=== PATIENT | male | born 1950 | race Caucasian/White ===

== ENCOUNTER 2017-06-02 16:09 | Emergency (ER) | payer OTHER, MEDICARE ==
[~2017-06-02] VITALS: Ht 177.8 cm; Wt 106.6 kg
[~2017-06-02 16:09] MED LIST: CARVEDILOL12.5 MG PO; CIPRO500 MG PO; FUROSEMIDE40 MG PO; LISINOPRIL10 MG PO; LISINOPRIL2.5 MG PO; MACROBID 100 M100 MG PO; METFORMIN HCL1000 MG PO; NORCO 5-325 TA1 EACH PO; PYRIDIUM200 MG PO; SPIRONOLACTONE25 MG PO; VITAMIN D5000 UNI1 PO
[2017-06-02] MEDS ORDERED: ENTRESTO 24 MG1 EACH (16:26)
[2017-06-02] MEDS ORDERED: ONDANSETRON ODT8 MG PO (18:34)
--- NOTE | 2017-06-03 15:29 | EKG ---
[facility] [address] [facility] [place], [place] [address] Signed Wide QRS rhythm Left axis deviation Nonspecific intraventricular block Lateral infarct , age undetermined Inferior infarct , age undetermined Abnormal ECG No previous ECGs available Confirmed by AVERY SORIANO MD ([id number]) on 06/03/2017 3:29:21 PM Electronically Signed By: AVERY SORIANO MD 06/03/17 1529 PATIENT NAME: CARIN GAITAN Electrocardiogram DATE OF : 50 PHYSICIAN: AVERY SORIANO MD REPORT #: [id number] REPORT IS CONFIDENTIAL AND NOT TO BE RELEASED WITHOUT AUTHORIZATION
== END 2017-06-02 18:46 | disposition home or self-care (01) ==
LOC: ED 16:09
DX: J10.1 Influenza due to other identified influenza virus with other respiratory manifestations (principal); E86.0 Dehydration; I11.0 Hypertensive heart disease with heart failure; I50.9 Heart failure, unspecified; E11.9 Type 2 diabetes mellitus without complications; Z90.49 Acquired absence of other specified parts of digestive tract; Z88.2 Allergy status to sulfonamides; Z79.899 Other long term (current) drug therapy; Z79.84 Long term (current) use of oral hypoglycemic drugs
CPT/HCPCS: 71045; 80053; 83880; 84484; 85025; 87502; 93005; 93010; 96361; 96374; 96375; 99284; J2405; J7030

== ENCOUNTER 2022-12-26 17:33 | Inpatient (IN) | payer OTHER, MEDICARE ==
[~2022-12-26] VITALS: Ht 177.8 cm; Wt 102.8 kg
--- OUTSIDE RECORDS SUMMARY | ~2022-12-26 | XMS | Continuity of Care Document ---
Demographics + + + | Address | [address] | | | [place] [address] | + + + | Preferred Language | Unknown | + + + | Marital Status | | + + + | Adventism Affiliation | Unknown | + + + | Race | White | + + + | Ethnic Group | Unknown | + + + Author + + + | Author | [facility] | + + + | Organization | [facility] | + + + | Address | [address] | | | [place] [address] | + + + | Phone | | + + + Care Team Providers + + + + | Care Vice President Digital Strategist Name | Role | Phone | + + + + Unavailable | Unavailable | + + + + Allergies and Intolerances + + + + + + | date | description | facility | reaction | severity | + + + + + + | (no date) | Sulfa | [facility] | (no reaction) | (no severity) | | | (Sulfonamide | | | | | | Antibiotics) | | | | + + + + + + Encounters No information. Functional Status No information. Immunizations No information. Medications No information. Problems No information. Procedures No information. Results/Labs No information. Social History No information. Vital Signs No information."
[~2022-12-26 17:33] MED LIST changes: +ENTRESTO 24 MG1 EACH; +ONDANSETRON ODT8 MG PO
[2022-12-26] MEDS ORDERED: FINASTERIDE5 MG PO (17:49)
[2022-12-26] MEDS ORDERED: JARDIANCE25 MG PO (17:49)
[2022-12-26] MEDS ORDERED: ATORVASTATIN CA20 MG PO (17:50)
[2022-12-26] MEDS ORDERED: CARVEDILOL12.5 MG PO (17:51)
[2022-12-26 17:57] LABS: BASOPHILS 0.4 % (0-2); EOSINOPHILS 0.4 % (0-6); HEMATOCRIT 40.7 % (35.0-50.0); HEMOGLOBIN 13.5 g/dL (12.0-18.0); LYMPHOCYTES 7.5 % (24-44); MCH 30.8 (27-36); MCHC 33.2 g/dl (30-36); MONOCYTES 5.4 % (0-12); NEUTROPHILS 86.3 % (39-80); PLATELET COUNT 176 K/uL (140-440); RBC 4.38 M/ul (4.3-5.7); RDW 13.3 (10.5-15.0)
[2022-12-26 18:14] LABS: ALBUMIN 3.6 g/dL (3.4-5.0); ALBUMIN/GLOBULIN RATIO 1.16 (1.1-2.4); ANION GAP 19.1 (7-21); BILIRUBIN, TOTAL 0.8 ng/dL (0.2-1.0); BUN/CREATININE RATIO 40.47 (6.0-28.6); CALCIUM 9.1 mg/dL (8.5-10.1); CREATININE, SERUM 1.26 mg/dL (0.70-1.30); MAGNESIUM 2.1 mg/dL (1.8-2.4); POTASSIUM 5.1 mmol/L (3.5-5.1); PROTEIN, TOTAL 6.7 g/dL (6.4-8.2)
--- NOTE | 2022-12-26 20:52 | NUR ---
pt ARRIVED TO [facility] FLOOR, BROUGHT IN BY ARMORING MACHINE OPERATORBHARGAVI RAMÍREZ. DISCUSSED WITH BOTH pt AND FAMILY POC, QUESTIONS ANSWERED, CALL LIGHT IN REACH. TELE IN PLACE, VSS. PRIMARY BHARGAVI ISBELL REMAINS IN ROOM. DR MAIN ALSO IN ROOM TO REASSESS REPEATED EKG. VERBAL ORDER READ BACK TO HOLD OFF ON IV MAINTENANCE FLUIDS AT THIS TIME D/T CARDIAC HX, NOTIFY MD IF BP DROPS. PRIMARY BHARGAVI ISBELL ALSO IN ROOM DURING CONVERSATION AND AWARE.
[2022-12-26 21:02] VITALS: BP 102/67
--- NOTE | 2022-12-26 21:34 | NUR ---
CONTACTED NURSE TAKING CARE OF PATIENT REGARDING TELEMETRY READING. SHOWS TOMB STONE LIKE PRESENTATION THAT REPRESENTS ST ELEVATION. LOOKS LIKE TOMB STONES ARE GETTING HIGHER. ALSO, THERE IS A VERY WIDE QRS COMPLEX. P WAVES ARE INVERTED. OCCASIONAL PVCS. ALL OF THE ABOVE REPORTED TO THE NURSE AND ADVISED TO CALL THE MD.
--- NOTE | 2022-12-26 21:37 | NUR ---
ALSO, QTC IS LONG GREATER THAN 500. REPORTED THIS TO PRIMARY NURSE WELL.
--- NOTE | 2022-12-26 21:45 | NUR ---
Pt placed on tele, noticed wide QRS and prolong QTC interval. Notified , got order for stat EKG. Dr. Molina was at bedside. director of video analytics and 21 DEALER aware. Will continue to monitor.
--- NOTE | 2022-12-26 22:49 | NUR ---
Dr. Trejo at bedside.Got orders to start LR at 40ml, notified Dr. Baker.
--- NOTE | 2022-12-26 22:49 | NUR ---
DR DAMON AT RN STATION, INSTRUCTED THIS RN AND PRIMARY RN AKILAH THAT pt SHOULD BE ON LOW RATE CONTINUOUS IV FLUIDS, DISCUSSED WITH DR DAMON THAT DR MAIN WANTED TO HOLD OFF ON IV FLUIDS D/T pt's CARDIAC HX, DR DAMON ADAMANT ON IV FLUIDS. PRIMARY RN AKILAH TO UPDATE DR MAIN. LAB IN ROOM FOR 2300 LAB DRAWS.
[2022-12-26 23:11] LABS: BASOPHILS 0.5 % (0-2); EOSINOPHILS 0.1 % (0-6); HEMATOCRIT 39.3 % (35.0-50.0); HEMOGLOBIN 12.9 g/dL (12.0-18.0); LYMPHOCYTES 9.5 % (24-44); MCH 30.6 (27-36); MCHC 32.8 g/dl (30-36); MCV 93.3 fl (81-99); MONOCYTES 5.6 % (0-12); NEUTROPHILS 84.3 % (39-80); PLATELET COUNT 159 K/uL (140-440); RBC 4.21 M/ul (4.3-5.7); RDW 13.4 (10.5-15.0)
--- NOTE | 2022-12-26 23:20 | EKG ---
[facility] [address] [place] [address] Signed Wide QRS rhythm Left axis deviation Nonspecific intraventricular block Minimal voltage criteria for LVH, may be normal variant ( Ed product ) Possible Lateral infarct , age undetermined Cannot rule out Inferior infarct , age undetermined Abnormal ECG When compared with ECG of 02-JUN-2017 16:20, No significant change was found Confirmed by Kristin Main MD () on 12/26/2022 11:20:17 PM Electronically Signed By: KRISTIN MAIN MD 12/26/222319 PATIENT NAME: CARIN GAITAN Electrocardiogram DATE OF : 50 PHYSICIAN: KRISTIN MAIN MD REPORT #: [id number] REPORT IS CONFIDENTIAL AND NOT TO BE RELEASED WITHOUT AUTHORIZATION
--- NOTE | 2022-12-26 23:20 | EKG ---
[facility] [address] [facility] [place] [address] Signed Wide QRS rhythm Left axis deviation Nonspecific intraventricular block Lateral infarct , age undetermined Inferior infarct , age undetermined Abnormal ECG When compared with ECG of 26-DEC-2022 17:58, No significant change was found Confirmed by Kristin Main MD () on 12/26/2022 11:20:38 PM Electronically Signed By: KRISTIN MAIN MD 12/26/22 2320 PATIENT NAME: CARIN GAITAN Electrocardiogram DATE OF : 50 PHYSICIAN: KRISTIN MAIN MD REPORT #: [id number] REPORT IS CONFIDENTIAL AND NOT TO BE RELEASED WITHOUT AUTHORIZATION
[2022-12-26 23:43] LABS: ABO A; ANTIBODY SCREEN NEGATIVE; RH NEGATIVE
[2022-12-27 01:12] VITALS: BP 95/62
[2022-12-27 04:47] VITALS: BP 99/61
[2022-12-27 05:27] LABS: BASOPHILS 0.5 % (0-2); EOSINOPHILS 0.9 % (0-6); HEMATOCRIT 38.9 % (35.0-50.0); HEMOGLOBIN 12.7 g/dL (12.0-18.0); LYMPHOCYTES 14.2 % (24-44); MCH 30.4 (27-36); MCHC 32.6 g/dl (30-36); MCV 93.2 fl (81-99); MONOCYTES 10.5 % (0-12); NEUTROPHILS 73.9 % (39-80); PLATELET COUNT 159 K/uL (140-440); RBC 4.17 M/ul (4.3-5.7); RDW 13.5 (10.5-15.0)
[2022-12-27 05:41] LABS: ALBUMIN 3.5 g/dL (3.4-5.0); ALBUMIN/GLOBULIN RATIO 1.25 (1.1-2.4); ANION GAP 14.3 (7-21); BILIRUBIN, TOTAL 0.5 ng/dL (0.2-1.0); BUN/CREATININE RATIO 58.94 (6.0-28.6); CALCIUM 8.7 mg/dL (8.5-10.1); CREATININE, SERUM 0.95 mg/dL (0.70-1.30); MAGNESIUM 2.2 mg/dL (1.8-2.4); PARTIAL THROMBOPLASTIN TIME 21.9 Sec (22.9-41.3); PHOSPHORUS, INORGANIC 3.4 mg/dL (2.5-4.9); POTASSIUM 4.3 mmol/L (3.5-5.1); PROTEIN, TOTAL 6.3 g/dL (6.4-8.2)
[2022-12-27 05:51] LABS: INR 1.01 (0.80-1.30); PROTIME 12.8 Sec (11.2-14.2)
[2022-12-27 09:06] VITALS: BP 116/67
[2022-12-27] MEDS ORDERED: ENTRESTO 49 MG1 EACH PO (10:01)
[2022-12-27] MEDS ORDERED: TAMSULOSIN HCL0.4 MG PO (10:05)
--- NOTE | 2022-12-27 11:45 | NUR ---
PATIENT LEFT UNIT FOR EGD.
--- NOTE | 2022-12-27 12:20 | NUR ---
12/27/22 1220 Elizabeth Corley 1216-PATIENT TO PACU ON RA. PATIENT IS DROWSY. RESP EVEN AND UNALBORED. HEMANTH PAIN
[2022-12-27 12:39] VITALS: BP 121/69
[2022-12-27 12:51] LABS: BASOPHILS 0.3 % (0-2); EOSINOPHILS 0.6 % (0-6); HEMATOCRIT 37.1 % (35.0-50.0); HEMOGLOBIN 12.5 g/dL (12.0-18.0); LYMPHOCYTES 11.9 % (24-44); MCHC 33.6 g/dl (30-36); MCV 92.4 fl (81-99); MONOCYTES 8.2 % (0-12); PLATELET COUNT 149 K/uL (140-440); RBC 4.02 M/ul (4.3-5.7); RDW 13.1 (10.5-15.0)
[2022-12-27] MEDS ORDERED: SUCRALFATE1 GM PO (13:10)
[2022-12-27] MEDS ORDERED: PANTOPRAZOLE SO40 MG PO (13:18)
--- NOTE | 2022-12-27 13:25 | CONS ---
[facility] [address] [place], [place] [address] Signed DATE OF CONSULTATION: 12/26/2022 TIME: 10:20 p.m. PROBLEM: Presumed hematemesis and melena. 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 He presented to the emergency room where he was evaluated by Dr. Matamoros for what sounded like a hypotensive episode or at least lightheadedness and diaphoresis. The patient has an underlying history of coronary artery disease, congestive heart failure, and diabetes mellitus. He had numbness and tingling of his left arm, which has since resolved. He did have associated nausea. He had been out in the extreme heat recently in the past few days and the possibility of dehydration on that basis was considered also. The patient recently started Jardiance for his diabetes. He additionally has had epigastric pain for which he has taken betsy selzer routinely. He is unaware that it contains aspirin in it. He was admitted by Dr. Molina having noted that his CBC was relatively normal. His white count was 14.3, hematocrit was 40.7, and platelets 176,000. His chem profile was notable for a creatinine of 1.26, BUN of 51, glucose of 215. Liver enzymes were normal. His vital signs since admission have been essentially normal . Heart rate between 104 and 101 and blood pressure 102 systolic. O2 saturation on room air has been 94%. I was consulted for consideration of upper endoscopy. PAST MEDICAL HISTORY: Notable for prior similar such episode, evaluated in [place] by upper endoscopy and colonoscopy. The patient has been in [place] for 45 years and he has impressively little knowledge of why or how he was evaluated in [place], though says he "must have been transported there." He has no real knowledge of whether or not he had endoscopy or colonoscopy, in fact. He has had no similar evaluation in the past 10 years. He does note that his father of cancer. He does not know what type of cancer. The patient does not smoke or use alcohol, but has been using a fair amount of [place] lately for recurrent epigastric pain. Electronically Signed By: ANGELA DAMON MD 12/27/22 1325 PATIENT NAME: CARIN GAITAN CONSULTATION DATE OF : 50 REPORT #: [id number] PHYSICIAN: ANGELA DAMON MD PCP: SID JONES MD REPORT IS CONFIDENTIAL AND NOT TO BE RELEASED WITHOUT AUTHORIZATION [facility] [address] [place], [place] [address] Signed SURGICAL HISTORY: Includes appendectomy. MEDICATIONS: At admission include metformin, spironolactone, Lasix, Jardiance, finasteride, atorvastatin, carvedilol, vitamin D3, and Entresto. REVIEW OF SYSTEMS: He denies abdominal pain at this time. He denies dysphagia. He has poor expression of his recent episode of presumed hematemesis, though he does note that he has had dark stool. PHYSICAL EXAMINATION: GENERAL: He is an elderly white man, who is pleasant and oriented and without evidence of toxicity in any way. NECK: Trachea is midline. CHEST: Clear. HEART: Regular without murmur. ABDOMEN: Obese, but soft. There is no palpable mass, tenderness, or ascites. EXTREMITIES: Show no clubbing, cyanosis, or edema. LABORATORY STUDIES: At 5:49 p.m. showed a white count of 14.3, hematocrit 40.7, platelets 176,000. 2300 lab study is pending. Notably, he does not have an IV running, though there is a peripheral IV in place. Additionally notable is he is on the regular berrios rather than the intensive care unit. ASSESSMENT: The patient is presumed to have possible gastrointestinal bleed based on per of dark stool (melena and presumed hematemesis), coffee-grounds possibly. He is n.p.o. and is diabetic. He should have an IV running whether or not there is concern to avoid excessive fluid infusion and excessive hydration--in part to maintain his IV access and in part because he has nothing to eat and dehydration would be progressive, particularly if gastrointestinal bleeding is slow and progressive. Additionally, his creatinine is slightly elevated. I discussed with him the plan for tomorrow to include upper endoscopy. If he were to "cut loose" with bleeding, this would need to be done sooner. Although most gastrointestinal bleeding patients are initially admitted to the intensive care unit in this institution. He is admittedly hemodynamically stable and has had no evidence of bleeding since his admission. Electronically Signed By: ANGELA DAMON MD 12/27/22 8380 PATIENT NAME: CARIN GAITAN CONSULTATION DATE OF : 50 REPORT #: [id number] PHYSICIAN: ANGELA DAMON MD PCP: SID JONES MD REPORT IS CONFIDENTIAL AND NOT TO BE RELEASED WITHOUT AUTHORIZATION [address] [address] Signed The risks of bleeding, infection, need for other indicated procedures were reviewed with him. He understands and agrees to proceed as we have described. MD DAVIDE Paulino/LEISAL /[id number] cc: MD Sid RAINES MD Copies: SID JONES DMD ~ Electronically Signed By: ANGELA DAMON MD 12/27/22 1325 PATIENT NAME: CARIN GAITAN CONSULTATION DATE OF : 50 REPORT #: [id number] PHYSICIAN: ANGELA DAMON MD PCP: SID JONES MD REPORT IS CONFIDENTIAL AND NOT TO BE RELEASED WITHOUT AUTHORIZATION
[2022-12-27] MEDS ORDERED: GLIPIZIDE XL5 MG PO (14:05)
[2022-12-27] MEDS ORDERED: ACTOS15 MG PO (14:05)
--- NOTE | 2022-12-28 13:09 | OR ---
[facility] [address] [place], [place] [address] Signed DATE OF OPERATION: SURGEON: Angela Damon MD PREOPERATIVE DIAGNOSIS: Coffee-grounds emesis and melena with stable hematocrit and no hemodynamic instability currently. POSTOPERATIVE DIAGNOSIS: CAMERONS ULCER ( proximal stomach at diaphragmatic impresson on hiatal hernia) with visible vessel. PROCEDURE: Esophagogastroduodenoscopy with biopsy and hemoclip application to visible vessels of collar ulcer. ANESTHESIA: Intravenous sedation, propofol infusion by Shon Ewing CRNA INDICATIONS: This 72-year-old white man was admitted yesterday by Dr. Molina. He is a patient of Dr. Sid Jones generally speaking. The patient has had epigastric pain over time, taking Basia-Lambert with some relief. Yesterday, he had what sounds like a syncopal episode with light headedness. He had earlier had dark diarrhea. He subsequently had what appeared to be coffee-grounds emesis. Notably, he was not hemodynamically unstable. He was admitted to the berrios and consultation was undertaken, anticipating upper endoscopy. He has had no further episodes of overt bleeding since hospitalization and his hematocrit remains good at 37, previously 42. He has a family history of cancer in his father, but he has no idea what kind. The patient is thought to have had endoscopic evaluation in [place] more than 10 years ago, but he has little if any recollection of the details. He is now to undergo upper endoscopy to better characterize his recent problem of presumed coffee ground emesis. He understands as does his and daughter who attends to him the risk of bleeding, infection, and perforation and wished to proceed. FINDINGS: The patient had a fair amount of Urbnia's esophagus, but no obvious evidence of neoplasm or stricture. No doubt the source of his recent bleeding was a collar ulcer (Sarwat's ulcer) in the portion of stomach herniated above the diaphragm. A visible vessel was noted on that basis was secured definitively with hemoclips. The stomach itself had mild gastritis. The duodenum was normal. There was no evidence of other Electronically Signed By: ANGELA DAMON MD 12/28/22 1309 PATIENT NAME: CARIN GAITAN OPERATIVE REPORT DATE OF : 50 REPORT #: [id number] PHYSICIAN: ANGELA DAMON MD PCP: SID JONES MD REPORT IS CONFIDENTIAL AND NOT TO BE RELEASED WITHOUT AUTHORIZATION [facility] [address] [place], [place] [address] Signed abnormality other than large hiatal hernia. DESCRIPTION OF PROCEDURE: The patient was brought to the endoscopy suite and placed in lateral decubitus position after undergoing lidocaine hypopharyngeal anesthesia. A bite block was placed. He was given intravenous sedation with full cardiopulmonary monitoring, which he tolerated well. An Olympus video upper endoscope was passed in the hypopharynx. The vocal cords appeared normal. The scope was advanced in the esophagus, which appeared normal except in the distal portion where there was Urbina's epithelium. The scope was passed to the stomach, which was insufflated with air. There was a fair amount of bilious fluid. Rugal folds appeared normal as did the antral contractility appeared normal. The pylorus was normal and scope was passed through into the duodenum. The duodenum appeared normal. Biopsies were obtained nevertheless to assess for celiac disease. The scope was withdrawn. A biopsy was taken of the antrum for both TRUMAN and pathologic testing. The scope was retroflexed and a sizable hiatal hernia was noted. Careful withdrawal of the scope into the hiatal hernia allowed it to withdraw into the esophagus without impediment. A testimony to its size overall. Various manipulations allowed for identification of an ulcer that had a visible vessel in the base. It was approximately 1.5 cm. The visible vessel was doubly clipped with hemoclips in an antegrade position effectively securing it. The scope was withdrawn and significant Urbina's epithelium was noted in the distal esophagus. This area was biopsied as well. Further withdrawal of scope showed no other abnormality. The patient was taken to the recovery room in good condition. CONCLUDING DIAGNOSIS: 1. Upper gastrointestinal bleeding related to collar (Sarwat) ulcer in relation to large hiatal hernia. 2. Urbina's esophagus. PLAN: We will prescribe Protonix 40 mg p.o. daily. We will initiate Carafate slurry 1 g p.o. t.i.d. for two weeks. I will see him in outpatient followup in 4-6 weeks. He will call for an appointment in the coming week. Angela Damon MD /LEISAL /[id number] Electronically Signed By: ANGELA DAMON MD 12/28/22 1309 PATIENT NAME: CARIN GAITAN OPERATIVE REPORT DATE OF : 50 REPORT #: [id number] PHYSICIAN: ANGELA DAMON MD PCP: SID JONES MD REPORT IS CONFIDENTIAL AND NOT TO BE RELEASED WITHOUT AUTHORIZATION [address] [address] Signed cc: MD Sid RAINES MD Copies: SID JONES DMD ~ Electronically Signed By: ANGELA DAMON MD 12/28/22 1309 PATIENT NAME: CARIN GAITAN OPERATIVE REPORT DATE OF : 50 REPORT #: [id number] PHYSICIAN: ANGELA DAMON MD PCP: SID JONES MD REPORT IS CONFIDENTIAL AND NOT TO BE RELEASED WITHOUT AUTHORIZATION
== END 2022-12-27 14:14 | disposition home or self-care (01) | DRG 378 ==
LOC: ED 17:33 → MS 19:48
PROVIDERS: Student in an Organized Health Care Education/Training Program; ADMIT Family Medicine; ATTEND Family Medicine
PROC: 0DB78ZX Excision of Stomach, Pylorus, Via Natural or Artificial Opening Endoscopic, Diagnostic (ICD-10-PCS; principal; 2022-12-26)
PROC: 0W3P8ZZ Control Bleeding in Gastrointestinal Tract, Via Natural or Artificial Opening Endoscopic (ICD-10-PCS; 2022-12-26)
PROC: 0DB38ZX Excision of Lower Esophagus, Via Natural or Artificial Opening Endoscopic, Diagnostic (ICD-10-PCS; 2022-12-26)
DX: K25.4 Chronic or unspecified gastric ulcer with hemorrhage (principal); I50.22 Chronic systolic (congestive) heart failure; K29.70 Gastritis, unspecified, without bleeding; K44.9 Diaphragmatic hernia without obstruction or gangrene; K22.70 Barrett's esophagus without dysplasia; E11.9 Type 2 diabetes mellitus without complications; I11.0 Hypertensive heart disease with heart failure; R12 Heartburn; I25.10 Atherosclerotic heart disease of native coronary artery without angina pectoris; I44.7 Left bundle-branch block, unspecified; R20.2 Paresthesia of skin; I95.9 Hypotension, unspecified; Z88.2 Allergy status to sulfonamides; Z79.899 Other long term (current) drug therapy; Z90.49 Acquired absence of other specified parts of digestive tract; Z79.84 Long term (current) use of oral hypoglycemic drugs; Z79.01 Long term (current) use of anticoagulants; Z79.02 Long term (current) use of antithrombotics/antiplatelets
CPT/HCPCS: 36415; 71045; 80053; 83735; 84100; 84484; 85025; 85610; 85730; 86850; 86900; 86901; 93005; 93010; 96374; 96375; 99285-25; A9270; C9113; J1815; J2405; J2704; J3010; J3490; J7030; J7121

== ENCOUNTER 2023-03-31 11:10 | Day surgery (SDC) | payer OTHER, MEDICARE ==
[~2023-03-31] VITALS: Ht 177.8 cm; Wt 104.5 kg
[~2023-03-31 11:10] MED LIST changes: +ACTOS15 MG PO; +ATORVASTATIN CA20 MG PO; +ENTRESTO 49 MG1 EACH PO; +FINASTERIDE5 MG PO; +GLIPIZIDE XL5 MG PO; +JARDIANCE25 MG PO; +PANTOPRAZOLE SO40 MG PO; +SUCRALFATE1 GM PO; +TAMSULOSIN HCL0.4 MG PO
[2023-03-31 11:32] VITALS: BP 145/77
--- NOTE | 2023-03-31 14:31 | NUR ---
03/31/23 1431 Sheets,Emely 1425 PT ARRIVED TO PACU AND WAKES EASILY. VSS AND PT EASILY FALLS BACK TO SLEEP WITH SMALL AMOUNT OF SNORING NOTED.
[2023-03-31 14:47] VITALS: BP 126/84
--- NOTE | 2023-03-31 19:08 | OR ---
[facility] [address] [place], [place] [address] Signed DATE OF OPERATION: 03/31/2023 SURGEON: Angela Damon MD PREOPERATIVE DIAGNOSES: 1. History of bleeding Sarwat's ulcer December 27, 2022. 2. Cessation of PPI medication ("ran out"). POSTOPERATIVE DIAGNOSES: 1. Persistent small Sarwat's ulcer in proximal gastric pouch with a large hiatal hernia. 2. Urbina's esophagus. PROCEDURE: Esophagogastroduodenoscopy with biopsy. ANESTHESIA: Intravenous sedation; fentanyl 100 mcg and Versed 4 mg. INDICATION: This 72-year-old white man is a patient of Dr. Sid Jones and known to me from the past having undergone upper endoscopy on December 27, 2022, where he was found to have a bleeding Sarwat's ulcer (collar ulcer or ulcer at the diaphragmatic impression on proximal gastric pouch with hiatal hernia). He was advised to maintain Prilosec on a daily basis, however, discontinued as he "ran out." He has no symptoms of bleeding, pain, or other issues at this time. He understands the risk of bleeding, infection, and perforation related to upper endoscopy and wished to proceed. FINDINGS: Indeed there was a persistent ulcer in the proximal gastric pouch. It was certainly not bleeding. It was superficial, but it remains. There was Urbina's epithelium of the esophagus. An impression on the stomach related to the diaphragm itself from large hiatal hernia was noted as expected. CLOtest was negative 15 minutes post procedure. DESCRIPTION OF PROCEDURE: The patient was brought to the endoscopy suite, given topical lidocaine hypopharyngeal anesthesia and placed in the lateral decubitus position. Full cardiopulmonary monitoring was maintained. A bite block was placed. An Olympus video upper endoscope was passed in the hypopharynx. The vocal cords appeared normal. Scope was advanced in the esophagus, throughout its length it was Electronically Signed By: ANGELA DAMON MD 03/31/23 1908 PATIENT NAME: CARIN GAITAN OPERATIVE REPORT DATE OF : 50 REPORT #: [id number] PHYSICIAN: ANGELA DAMON MD PCP: SID JONES MD REPORT IS CONFIDENTIAL AND NOT TO BE RELEASED WITHOUT AUTHORIZATION [facility] [address] [place], [place] [address] Signed normal except in the distal portion which had Urbina's epithelium. Scope was then advanced into the proximal gastric pouch from the large hiatal hernia and thereafter into the main stomach. The stomach itself otherwise appeared reasonably normal. Pylorus was normal. Scope was passed through into the duodenum. The duodenum was normal. Scope was withdrawn and biopsies taken of the antrum for both TRUMAN and pathologic testing. Retroflexed view was undertaken, not initially confirming an ulcer. Further withdrawal of the scope with antegrade visualization did in fact show a shallow white based ulcer in the proximal gastric pouch consistent with Sarwat's ulcer. This area was biopsied as well. The scope was withdrawn and biopsies then taken of the Urbina's epithelium mucosa of the distal esophagus. Further withdrawal showed no other findings of concern. He was taken to the recovery room in good condition. CONCLUDING DIAGNOSIS: Has persistent ulcer in the proximal gastric pouch related to large hiatal hernia. Needs to be on PPI, Prilosec 20 mg p.o. daily at minimum. We will hold off on Carafate use at present. I would like to see him back in the office in 3 to 4 months, sooner if symptoms should occur. He should stay on the medication henceforth and without stopping. MD DAVIDE Paulino/LEISAL /[id number] cc: Sid Jones MD Copies: SID JONES DMD ~ Electronically Signed By: ANGELA DAMON MD 03/31/23 1908 PATIENT NAME: CARIN GAITAN OPERATIVE REPORT DATE OF : 50 REPORT #: [id number] PHYSICIAN: ANGELA DAMON MD PCP: SID JONES MD REPORT IS CONFIDENTIAL AND NOT TO BE RELEASED WITHOUT AUTHORIZATION
--- NOTE | 2023-04-07 11:43 | PATH ---
[facility] [address] [place], [place] [address] Signed SPECIMEN(S): A ANTRUM/PYLORUS BIOPSY SPECIMEN(S): B PROXIMAL GASTRIC POUCH BIOPSY SPECIMEN(S): C DISTAL ESOPHAGUS BIOPSY SPECIMEN SOURCE: A. ANTRUM/PYLORUS BIOPSY B. PROXIMAL GASTRIC POUCH BIOPSY C. DISTAL ESOPHAGUS BIOPSY CLINICAL HISTORY: Hx: Hiatal hernia, Urbina's. DDX: Hiatal hernia. persistent Sarwat's ulcer. FINAL PATHOLOGIC DIAGNOSIS: A. Antrum/pylorus biopsy: - Benign gastric-type mucosa with focal slight chronic inflammation. - Negative for evidence of Helicobacter organisms on routine HE-stained sections. B. Proximal gastric pouch biopsy: - Benign intestinal type epithelium, negative for dysplasia. C. Distal esophagus biopsy: - Esophageal and gastric-type mucosa with specialized intestinal (goblet cell) metaplasia, negative for dysplasia. JVR:clv MICROSCOPIC EXAMINATION: Histologic sections of all submitted blocks are examined by light microscopy. These findings, together with the gross examination, support the pathologic diagnosis. GROSS DESCRIPTION: A. The specimen, labeled and designated "Dell, D, antrum/pylorus biopsy," is received in formalin and consists of two kim soft tissue fragments measuring 0.4 to 0.5 cm, all specimens are submitted entirely in (A1). B. The specimen, labeled and designated "Dell, D, proximal gastric pouch biopsy," is received in formalin and consists of three kim soft tissue fragments measuring 0.2 to 0.4 cm, all specimens are submitted entirely in (B1). C. The specimen, labeled and designated "Dell, D, distal esophagus biopsy," is received in formalin and consists of two kim-white soft tissue fragments measuring 0.4 to 0.6 cm, all specimens PATIENT NAME: CARIN GAITAN PATHOLOGY DATE OF : 50 REPORT #: [id number] PHYSICIAN: DALJIT THOMAS PCP: SID JONES MD REPORT IS CONFIDENTIAL AND NOT TO BE RELEASED WITHOUT AUTHORIZATION [facility] [address] [place], [place] [address] Signed are submitted entirely in (C1). MMA (under the direct supervision of a pathologist) The Gross Description was prepared using a voice recognition system. The report was reviewed for accuracy; however, sound-alike word errors, addition and/or deletions may occur. If there is any question about this report, please contact Client Services. PERFORMING LABORATORY: Technical component was performed by [facility], [address] [place] [id number] (CLIA# [id number]). Professional interpretation was performed by [facility] - [facility], [address] [place] [id number] (CLIA#: [id number]). Diagnostician: Sam Edwards MD Pathologist Electronically Signed 04/07/2023 Copies: ~ PATIENT NAME: CARIN GAITAN PATHOLOGY DATE OF : 50 REPORT #: [id number] PHYSICIAN: DALJIT THOMAS PCP: SID JONES MD REPORT IS CONFIDENTIAL AND NOT TO BE RELEASED WITHOUT AUTHORIZATION
== END 2023-03-31 15:03 | disposition home or self-care (01) ==
LOC: OPS 11:10 → DS 11:10 → OPS 12:15
PROVIDERS: ATTEND Surgery
PROC: 0DB68ZX Excision of Stomach, Via Natural or Artificial Opening Endoscopic, Diagnostic (ICD-10-PCS; 2023-03-31)
PROC: 0DB38ZX Excision of Lower Esophagus, Via Natural or Artificial Opening Endoscopic, Diagnostic (ICD-10-PCS; principal; 2023-03-31 12:15)
DX: K22.70 Barrett's esophagus without dysplasia (principal); K25.9 Gastric ulcer, unspecified as acute or chronic, without hemorrhage or perforation; K44.9 Diaphragmatic hernia without obstruction or gangrene; Z88.2 Allergy status to sulfonamides
CPT/HCPCS: 99153; G0500; J2250; J3010; J7121

== ENCOUNTER 2024-01-07 07:24 | Emergency (ER) | payer OTHER, MEDICARE ==
[~2024-01-07] VITALS: Ht 177.8 cm; Wt 105.7 kg
[~2024-01-07 07:24] MED LIST changes: +AMIODARONE HCL200 MG PO; +ASPIRIN81 MG PO; +CEPHALEXIN500 MG PO; +CLOPIDOGREL75 MG PO
--- OUTSIDE RECORDS SUMMARY | 2024-01-07 07:28 | XMS ---
PreManage Notification: CARIN GAITAN Security Electronic Prepress Operator Events No recent Security Events currently on file CRITERIA MET - [facility] [place] - 2 Visits in 30 Days CARE PROVIDERS JEFE LOMAX [facility] Current PHONE: Unknown Elsi has no Care Guidelines for this patient. Bailey VISIT COUNT (12 MO[address] [facility] TOTAL 4 NOTE: Visits indicate total known visits. ED/UCC VISIT TRACKING (12 MO.) 01/07/2024 07:25 [facility] [place] TYPE: Emergency COMPLAINT: - DIZZINESS 12/19/2023 09:49 [facility] TYPE: Emergency COMPLAINT: - CHEST PAIN DIAGNOSES: - Allergy status to sulfonamides - Chest pain, unspecified - Heart failure, unspecified - Hypertensive heart disease with heart failure - terminal supervisor (current) use of aspirin - Other machine long goods helper (current) drug therapy - Palpitations - Type 2 diabetes mellitus without complications 12/16/2023 08:51 [facility] [place] TYPE: Emergency COMPLAINT: - SYNCOPE DIAGNOSES: - Allergy status to sulfonamides - Heart failure, unspecified - Hypertensive heart disease with heart failure - Left bundle-branch block, unspecified - custodial (current) use of aspirin - terminal supervisor (current) use of oral hypoglycemic drugs - Other machine long goods helper (current) drug therapy - Syncope and collapse - Type 2 diabetes mellitus without complications - Urinary tract infection, site not specified 07/29/2023 18:51 [facility] [place] TYPE: Emergency COMPLAINT: - SYNCOPE DIAGNOSES: - Allergy status to sulfonamides - Heart failure, unspecified - Hypertensive heart disease with heart failure - custodial (current) use of oral hypoglycemic drugs - Other machine long goods helper (current) drug therapy - Syncope and collapse - Type 2 diabetes mellitus without complications INPATIENT VISIT TRACKING (12 MO.) No inpatient visits to display in this time frame [email or web address]
[2024-01-07] MEDS ORDERED: ondansetron HCL 4 MG/2 ML VIAL IV ONE (07:45)
[2024-01-07 07:47] LABS: BASOPHILS 0.6 % (0-2); EOSINOPHILS 3.3 % (0-6); HEMATOCRIT 44.3 % (35.0-50.0); LYMPHOCYTES 12.9 % (24-44); MCH 30.4 (27-36); MCHC 33.8 g/dl (30-36); MCV 89.9 fl (81-99); MONOCYTES 8.7 % (0-12); NEUTROPHILS 74.5 % (39-80); PLATELET COUNT 162 K/uL (140-440); RBC 4.93 M/ul (4.3-5.7); RDW 15.3 (10.5-15.0)
[2024-01-07 07:54] LABS: INR 1.11 (0.80-1.30); PROTIME 13.9 Sec (11.2-14.2)
[2024-01-07 07:56] LABS: PARTIAL THROMBOPLASTIN TIME 29.4 Sec (22.9-41.3)
[2024-01-07 08:01] LABS: ALBUMIN 3.8 g/dL (3.4-5.0); ALBUMIN/GLOBULIN RATIO 1.12 (1.1-2.4); ANION GAP 13.6 (7-21); BUN/CREATININE RATIO 14.7 (6.0-28.6); CALCIUM 8.8 mg/dL (8.5-10.1); CREATININE, SERUM 1.02 mg/dL (0.70-1.30); POTASSIUM 3.6 mmol/L (3.5-5.1); PROTEIN, TOTAL 7.2 g/dL (6.4-8.2)
[2024-01-07] MEDS ORDERED: MECLIZINE HCL25 MG PO (09:42)
[2024-01-07] MEDS ORDERED: ATIVAN1 MG PO (09:42)
[2024-01-07] MEDS ORDERED: ONDANSETRON ODT8 MG PO (09:42)
[2024-01-07] MEDS ORDERED: MECLIZINE HCL 25 MG TAB PO ONE (09:45)
[2024-01-07 09:56] VITALS: BP 140/66
--- NOTE | 2024-01-07 21:43 | EKG ---
[facility] [address] [address] Signed Sinus rhythm with 1st degree AV block Left axis deviation Nonspecific intraventricular block Minimal voltage criteria for LVH, may be normal variant ( Ed product ) Lateral infarct , age undetermined Inferior infarct , age undetermined Abnormal ECG When compared with ECG of 19-DEC-2023 09:48, Nonspecific intraventricular block has replaced Left bundle branch block Lateral infarct is now present Inferior infarct is now present Confirmed by Kristin Main MD () on 01/07/2024 9:43:28 PM Electronically Signed By: KRISTIN MAIN MD [id number] PATIENT NAME: CARIN GAITAN Electrocardiogram DATE OF : 50 PHYSICIAN: KRISTIN MAIN MD REPORT #: [id number] REPORT IS CONFIDENTIAL AND NOT TO BE RELEASED WITHOUT AUTHORIZATION
== END 2024-01-07 09:57 | disposition home or self-care (01) ==
LOC: ED 07:24
PROVIDERS: Emergency Medicine
DX: H81.399 Other peripheral vertigo, unspecified ear (principal); E11.9 Type 2 diabetes mellitus without complications; I11.0 Hypertensive heart disease with heart failure; I50.9 Heart failure, unspecified; Z79.899 Other long term (current) drug therapy; Z79.84 Long term (current) use of oral hypoglycemic drugs; Z79.82 Long term (current) use of aspirin; Z79.02 Long term (current) use of antithrombotics/antiplatelets; Z88.2 Allergy status to sulfonamides
CPT/HCPCS: 36415; 70450; 70496; 70498; 70551; 80053; 84484; 85025; 85610; 85730; 93005; 93010; 99284-25; A9270; J2405; Q3014; Q9967

== ENCOUNTER 2024-06-04 16:20 | Emergency (ER) | payer OTHER, MEDICARE ==
[~2024-06-04] VITALS: Ht 177.8 cm; Wt 104.3 kg
[~2024-06-04 16:20] MED LIST changes: +ATIVAN1 MG PO; +MECLIZINE HCL25 MG PO
[2024-06-04] MEDS ORDERED: ATORVASTATIN CA40 MG PO (16:42)
[2024-06-04] MEDS ORDERED: ASPIRIN 81 MG CHEW PO ONE (16:45)
[2024-06-04] MEDS ORDERED: fentaNYL citrate 100 MCG/2 ML VIAL IV PRN (16:45)
[2024-06-04 16:49] LABS: HEMATOCRIT 43.8 % (35.0-50.0); HEMOGLOBIN 14.9 g/dL (12.0-18.0); MCH 31.4 (27-36); MCV 92.4 fl (81-99); PLATELET COUNT 166 K/uL (140-440); RBC 4.74 M/ul (4.3-5.7); RDW 13.6 (10.5-15.0)
[2024-06-04 17:07] LABS: ALBUMIN 3.3 g/dL (3.4-5.0); ALBUMIN/GLOBULIN RATIO 0.8 (1.1-2.4); ANION GAP 13.5 (7-21); BANDS, MANUAL DIFF 1; BILIRUBIN, TOTAL 1.3 ng/dL (0.2-1.0); BUN/CREATININE RATIO 17.39 (6.0-28.6); CREATININE, SERUM 1.38 mg/dL (0.70-1.30); LYMPHOCYTES, MANUAL DIFF 10; MAGNESIUM 1.6 mg/dL (1.8-2.4); MONOCYTES, MANUAL DIFF 5; NEUTROPHILS, MANUAL DIFF 84; POTASSIUM 3.5 mmol/L (3.5-5.1); PROTEIN, TOTAL 7.4 g/dL (6.4-8.2)
[2024-06-04] MEDS ORDERED: levoFLOXacin 750 MG TAB PO ONE (18:30)
[2024-06-04] MEDS ORDERED: LEVOFLOXACIN750 MG PO (19:27)
[2024-06-04 19:42] VITALS: BP 97/56
--- NOTE | 2024-06-04 21:39 | EKG ---
[facility] [address] [place] [address] Signed Sinus tachycardia with AV dissociation and Wide QRS rhythm Left axis deviation Left bundle branch block Abnormal ECG When compared with ECG of 07-JAN-2024 08:33, Wide QRS rhythm has replaced Sinus rhythm Vent. rate has increased BY 38 BPM Confirmed by Kristin Main MD () on 06/04/2024 9:38:58 PM Electronically Signed By: KRISTIN MAIN MD 06/04/24 2139 PATIENT NAME: CARIN GAITAN Electrocardiogram DATE OF : 50 PHYSICIAN: KRISTIN MAIN MD REPORT #: [id number] REPORT IS CONFIDENTIAL AND NOT TO BE RELEASED WITHOUT AUTHORIZATION
== END 2024-06-04 19:43 | disposition home or self-care (01) ==
LOC: ED 16:20
PROVIDERS: Emergency Medicine
DX: J18.9 Pneumonia, unspecified organism (principal); I11.0 Hypertensive heart disease with heart failure; I50.9 Heart failure, unspecified; E11.9 Type 2 diabetes mellitus without complications; I48.91 Unspecified atrial fibrillation; Z95.5 Presence of coronary angioplasty implant and graft; Z86.711 Personal history of pulmonary embolism; Z88.2 Allergy status to sulfonamides; Z79.01 Long term (current) use of anticoagulants; Z79.84 Long term (current) use of oral hypoglycemic drugs; Z79.82 Long term (current) use of aspirin; Z79.899 Other long term (current) drug therapy
CPT/HCPCS: 36415; 71045; 80053; 83735; 83880; 84484; 85025; 93005; 93010; 96374; 99285-25; A9270; J3010

== ENCOUNTER 2024-09-15 15:39 | Inpatient (IN) | payer OTHER, MEDICARE ==
[2024-09-15] VITALS (10 sets, daily range): BP systolic 13–114; BP diastolic 43–65
[~2024-09-15] VITALS: Ht 177.8 cm; Wt 103.4 kg
[~2024-09-15 15:39] MED LIST changes: +ATORVASTATIN CA40 MG PO; +LEVOFLOXACIN750 MG PO; +VITAMIN D3250 MC1 PO; -VITAMIN D5000 UNI1 PO
[2024-09-15] MEDS ORDERED: TAMSULOSIN HCL0.4 MG PO (15:52)
[2024-09-15 15:54] LABS: BASOPHILS 0.5 % (0-2); EOSINOPHILS 0.4 % (0-6); HEMATOCRIT 30.1 % (35.0-50.0); HEMOGLOBIN 10.2 g/dL (12.0-18.0); LYMPHOCYTES 11.2 % (24-44); MCHC 33.9 g/dl (30-36); MCV 88.5 fl (81-99); MONOCYTES 6.5 % (0-12); NEUTROPHILS 81.4 % (39-80); PLATELET COUNT 148 K/uL (140-440); RDW 15.6 (10.5-15.0)
[2024-09-15] MEDS ORDERED: CALCIUM500 MG PO (15:55)
[2024-09-15] MEDS ORDERED: ASPIRIN 81 MG CHEW PO ONE (16:00)
[2024-09-15 16:10] LABS: ALBUMIN 3.3 g/dL (3.4-5.0); ALBUMIN/GLOBULIN RATIO 1.27 (1.1-2.4); BILIRUBIN, TOTAL 0.6 mg/dL (0.2-1.0); BUN/CREATININE RATIO 52.1 (6.0-28.6); CREATININE, SERUM 1.19 mg/dL (0.70-1.30); MAGNESIUM 1.8 mg/dL (1.8-2.4); PROTEIN, TOTAL 5.9 g/dL (6.4-8.2)
[2024-09-15] MEDS ORDERED: SODIUM CHLORIDE 0.9% 500 ML IV PRN (16:15)
[2024-09-15] MEDS ORDERED: PANTOPRAZOLE SODIUM 40 MG/10 ML VIAL IV ONE (16:45)
[2024-09-15] MEDS ORDERED: LACTATED RINGER'S 1,000 ML IV SCH (17:30)
[2024-09-15] MEDS ORDERED: GLUCAGON,HUMAN RECOMBINANT 1 MG/ML VIAL SUB-Q PRN (17:30)
[2024-09-15] MEDS ORDERED: DEXTROSE 50% 50 ML SYR IV PRN ×2 (17:30)
[2024-09-15] MEDS ORDERED: DEXTROSE 5% 1,000 ML IV PRN (17:30)
[2024-09-15] MEDS ORDERED: ondansetron HCL 4 MG/2 ML VIAL IV PRN (17:30)
[2024-09-15] MEDS ORDERED: IBLOOD GLUCOSE TEST STRIP 1 EA TEST XX PRN (17:30)
[2024-09-15 18:07] LABS: ABO A; ANTIBODY SCREEN NEGATIVE; IS CROSSMATCH COMPATIBLE; RH NEGATIVE
--- NOTE | 2024-09-15 18:09 | NUR ---
PT ARRIVED TO CCU VIA STRETCHER. TRANSFERED TO BED WITH 1 PERSON ASSIST. SKIN ASSESSMENT COMPLETED AND VERFIFED BY FAWAD BURK.
--- NOTE | 2024-09-15 18:46 | NUR ---
BLOOD DOUBLE CHECK AT BEDSIDE BY 2ND RN FAWAD. STARTED INFUSION AT 1845. AT BEDSIDE.
--- NOTE | 2024-09-15 19:29 | NUR ---
REPORT RECEIVED FROM PEDRO CARDOZO. PATIENT RESTING IN BED WITH , DALTON, AT BEDSIDE. BLOOD INFUSING WITHOUT DIFFICULTY. PLAN OF CARE FOR SHIFT REVIEWED WITH PATIENT AND SPOUSE, BOTH DENY QUESTIONS OR CONCERNS. SAFETY EDUCATION REVIEWED AND PATIENT VERBALIZED UNDERSTANDING. CALL LIGHT IN REACH. PATIENT DENIES PAIN, NEEDS OR CONCERNS AT THIS TIME.
--- NOTE | 2024-09-15 19:58 | NUR ---
DR. MAIN IN TO ROUND ON PATIENT. UPDATED ON PLAN OF CARE TO INCLUDE DR. DAMON TO SEE IN THE AM AND POTENTIAL SCOPE. ORDER RECEIVED THAT PATIENT MAY HAVE CLEAR LIQUIDS UNTIL MIDNIGHT AND THEN NPO. REPEAT H/H TO BE DRAWN AFTER COMPLETION OF CURRENT UNIT INFUSING. ICE WATER GIVEN TO PATIENT. CALL LIGHT IN REACH.
[2024-09-15] MEDS ORDERED: IBLOOD GLUCOSE TEST STRIP 1 EA TEST VI SCH (20:00)
[2024-09-15] MEDS ORDERED: Insulin Regular, Human 100 UNIT/ML ML SUB-Q SCH (20:00)
--- NOTE | 2024-09-15 20:21 | NUR ---
DR. MAIN NOTIFIED OF CBG RESULT OF 72. APPLE JUICE GIVEN AND THIS RN TO RECHECK CBG WHEN LAB DRAWS H/H.
--- NOTE | 2024-09-15 21:02 | NUR ---
BLOOD TRANSFUSION COMPLETE AT 2046. PATIENT TOLERATED WELL. REVIEWED S/S OF TRANSFUSION REACTION WITH PATIENT. PATIENT DENIES ALL AND VERBALIZES UNDERSTANDING TO NOTIFY NURSING IMMEDIATELY IF ANY ARISE.
[2024-09-15 21:22] LABS: BASOPHILS 0.7 % (0-2); EOSINOPHILS 0.8 % (0-6); HEMATOCRIT 28.8 % (35.0-50.0); HEMOGLOBIN 9.8 g/dL (12.0-18.0); MCH 29.8 (27-36); MCV 87.7 fl (81-99); MONOCYTES 8.9 % (0-12); NEUTROPHILS 70.6 % (39-80); PLATELET COUNT 138 K/uL (140-440); RBC 3.28 M/ul (4.3-5.7); RDW 15.4 (10.5-15.0)
[2024-09-15] MEDS ORDERED: DEXTROSE 5% - LACTATED RINGERS 1,000 ML IV SCH (21:30)
--- NOTE | 2024-09-15 21:35 | NUR ---
REVIEWED RESULTS OF CBC WITH DR. MAIN. DR. MAIN TO ORDER ANOTHER UNIT OF PRBC. JOSE DAVID TO PLACE ORDER D5LR @75ML/HR TO BEGIN AFTER SECOND UNIT OF BLOOD COMPLETE. UPDATED ON CBG OF 90. DR. MAIN ORDERED FOR AM LABS TO BE DRAWN WITH NEXT CBC AFTER SECOND INFUSION COMPLETE.
[2024-09-15 22:06] LABS: IS CROSSMATCH COMPATIBLE
--- NOTE | 2024-09-15 22:11 | EKG ---
[facility] [address] [facility] [place] [address] Signed Sinus rhythm with 1st degree AV block Left axis deviation Nonspecific intraventricular block Possible Lateral infarct , age undetermined Abnormal ECG When compared with ECG of 04-JUN-2024 16:24, Sinus rhythm has replaced Wide QRS rhythm Confirmed by Kristin Main MD () on 09/15/2024 10:10:58 PM Electronically Signed By: KRISTIN MAIN MD 09/15/242210 PATIENT NAME: CARIN GAITAN Electrocardiogram DATE OF : 50 PHYSICIAN: KRISTIN MAIN MD REPORT #: [id number] REPORT IS CONFIDENTIAL AND NOT TO BE RELEASED WITHOUT AUTHORIZATION
--- NOTE | 2024-09-15 22:48 | NUR ---
PRBCS INFUSING WITHOUT DIFFICULTY AT THIS TIME. 2ND UNIT STARTED AT 22:10. THIS RN 1:1 AT BEDSIDE FOR 15 MINUTES. REVIEWED AGAIN THE S/S OF TRANSFUSION REACTION. PATIENT DENIES COMPLAINTS EXCEPT BLE ACHINESS. BLE EDEMA NOTED ON INITIAL ASSESSMENT BY THIS RN. EDEMA HAS NOT WORSENED. REVIEWED S/S OF DVT. NO REDNESS OR SWELLING BEYOND ESTABLISHED EDEMA NOTED TO EITHER LOWER EXTREMITY. PT DENIES SOB; LUNG SOUNDS CTA. WHEN PICKING UP CURRENT UNIT OF BLOOD, BLOOD BANK REPORTED 2 UNITS OF CROSSMATCHED, TYPE SPECIFIC BLOOD AVAILABLE. UPDATED DR. MAIN ON AVAILABLE UNITS LEFT AND THAT MORE TO ARRIVE MID MORNING PER BLOOD BANK. ALSO UPDATED HIM ON BLE ACHINESS. THIS RN TO MONITOR FOR FLUID OVERLOAD AND NOTIFY PROVIDER OF ANY S/S. BP CONTIUES TO BE SOFT AT THIS TIME WITH MAPS IN THE 60S. DR. MAIN UPDATED ON BPS.
--- NOTE | 2024-09-15 23:08 | NUR ---
PATIENT RESTING IN BED. BLOOD TRANFUSING WITHOUT DIFFICULTY. DENIES COMPLAINTS. CALL LIGHT IN REACH.
[2024-09-16] VITALS (32 sets, daily range): BP systolic 75–111; BP diastolic 47–75
--- NOTE | 2024-09-16 00:45 | NUR ---
BLOOD COMPLETE AT 0045. ASSESSMENT CHARTED. PATIENT DENIES PAIN. REPORTS BLE ACHINESS HAS RESOLVED. BOTH PIV SITES FLUSH EASILY WITH + BLOOD RETURN. D5LR STARTED AFTER TRANSFUSION COMPLETE PER ORDER. PATIENT DENIES ANY S/S OF TRANSFUSION REACTION. NO NEEDS VERBALIZED AT THIS TIME. CALL LIGHT IN REACH.
[2024-09-16 02:20] LABS: BASOPHILS 0.4 % (0-2); EOSINOPHILS 0.9 % (0-6); HEMATOCRIT 26.9 % (35.0-50.0); HEMOGLOBIN 9.2 g/dL (12.0-18.0); LYMPHOCYTES 21.1 % (24-44); MCH 29.7 (27-36); MCHC 34.1 g/dl (30-36); MCV 87.1 fl (81-99); MONOCYTES 10.2 % (0-12); NEUTROPHILS 67.4 % (39-80); PLATELET COUNT 119 K/uL (140-440); RBC 3.08 M/ul (4.3-5.7); RDW 15.6 (10.5-15.0)
[2024-09-16 02:47] LABS: ALBUMIN 2.5 g/dL (3.4-5.0); ALBUMIN/GLOBULIN RATIO 1.04 (1.1-2.4); ANION GAP 10.8 (7-21); BUN/CREATININE RATIO 72.41 (6.0-28.6); CREATININE, SERUM 0.87 mg/dL (0.70-1.30); MAGNESIUM 1.7 mg/dL (1.8-2.4); PHOSPHORUS, INORGANIC 3.3 mg/dL (2.5-4.9); POTASSIUM 3.8 mmol/L (3.5-5.1); PROTEIN, TOTAL 4.9 g/dL (6.4-8.2)
--- NOTE | 2024-09-16 03:03 | NUR ---
PATIENT UP TO THE BEDSIDE TO VOID TO URNAL. PATIENT DID NOT USE CALL LIGHT AND CLIMBED OVER BEDRAIL TO EXIT THE BED. PATIENT USED URANL. HR ELEVATED TO 130. PATIENT DENIED FEELING LIGHTHEADED OR CHEST PAIN. PATIENT RETURNED TO BED. ASSISTED TO POSIITON FOR COMFORT. HOB ELEVATED. REMINDED PATIENT TO USE CALL LIGHT. BED ALARM ACTIVE.
[2024-09-16 03:28] LABS: IS CROSSMATCH COMPATIBLE
--- NOTE | 2024-09-16 03:37 | NUR ---
PATIENT'S LABS DRAWN AT 0200. CBG AT THAT TIME 65. JUICE GIVEN AND RECHECKED 15 MIN LATER AND DOWN TO 61, SECOND JUICE GIVEN. CMP RESULTED CONFIRMING GLUCOSE OF 66. PATIENT DENIES S/S OF HYPOGLYCEMIA OTHER THAN STATING "I KNOW IT'S LOW BECAUSE I CAN'T HAVE FOOD. CALL PLACED TO DR. MAIN AFTER CBC AND CMP RESULTED. AMP D50, 50ML ADMINISTERED PER ORDER. ORDER RECEIVED TO TRANSFUSE ANOTHER UNIT OF PRBC AND CHECK CBC 1 HR LATER. REVIEWED PREVIOUS ECHO RESULTS WITH DR. MAIN. ORDER RECEIVED TO CONTINUE TO INFUSE D5LR AT 75ML/ HR. REVIEWED RATE TO RUN BLOOD AND D5LR; TO RUN BOTH FOR A COMBINED TOTAL OF 200ML/HR AND CONTINUE TO MONITOR FOR FLUID OVERLOAD. DURING CALL TO DR. MAIN. PATIENT HAD CLIMBED OVER SIDE RAIL TO USE URINAL. HR NOTED TO BE INCREASED WITH ACTIVITY UP TO 140S. REVIEWED SAFETY EDUCATION AGAIN WITH PATIENT, BED EXIT ALARM ON AND CALL LIGHT IN REACH. PATIENT VERBALIZED UNDERSTANDING TO CALL FOR ASSISTANCE.
--- NOTE | 2024-09-16 04:00 | NUR ---
ASSESSMENT CHARTED. PATIENT DENIES PAIN; DENIES NAUSEA. PATIENT ENDORSES PASSING SOME FLATUS; HOWEVER BOWEL SOUNDS ARE LESS ACTIVE THAN PREVIOUS ASSESSMENT AND ABDOMEN APPEARS MORE DISTENDED BUT NON-TENDER TO PALPATION. THIRD UNIT OF PRBC INFUSING WITHOUT DIFFICULTY IN L HAND IV. D5LR INFUSING WITHOUT DIFFICULTY IN R AC IV. SAFETY EDUCATION AND NOT GETTING UP WITHOUT NURSING STAFF PROVIDED AGAIN, PATIENT CONTINUES TO VERBALIZE UNDERSTANDING. CALL LIGHT IN REACH AND BED EXIT ALARM ON.
--- NOTE | 2024-09-16 04:52 | NUR ---
PATIENT WAKES EASILY TO ROUNDING. DENIES ANY S/S OF TRANSFUSION REACTION. NO S/S OF FLUID OVERLOAD NOTED. BOTH IV SITES PATENT AND INFUSING WITHOUT DIFFICULTY. PATIENT DENIES ABDOMINAL PAIN OR NAUSEA. NO OTHER COMPLAINTS VERBALIZED. CALL LIGHT IN REACH AND BED EXIT ALARM ON.
--- NOTE | 2024-09-16 05:06 | NUR ---
PATIENT USED CALL LIGHT FOR ASSISTANCE TO SIDE OF BED TO VOID. VOIDED 400ML CLEAR YELLOW URINE. BACK TO BED. BED EXIT ALARM ON.
--- NOTE | 2024-09-16 05:53 | NUR ---
PATIENT C/O SOB. LUNG SOUNDS CLEAR THROUGHTOUT. SPO2 97-100 RA. PATIENT THEN COMPLAINED OF "PRESSURE". WHEN ASKED TO ELABORATE, PATIENT STATES "I DON'T KNOW HOW TO DESCRIBE IT". PATIENT POINTS TO NOSE AND CHEEKS WHEN ASKED WHERE THE PRESSURE IS. PT C/O DRY MOUTH. SWAB GIVEN. AFTER PATIENT SWABBED HIS MOUTH, HE NO LONGER C/O SOB OR PRESSURE. SPOUSE DALTON NOW AT BEDSIDE. UPDATED ON COURSE OF EVENTS THROUGH THE NIGHT.
--- NOTE | 2024-09-16 06:47 | NUR ---
PATIENT USED CALL LIGHT FOR ASSISTANCE WITH URINAL. STOOD AT SIDE OF BED AND REPORTED DIZZINESS. PATIENT INSTRUCTED TO SIT. PATIENT ABLE TO VOID WHILE SITTING. DURING ACTIVITY, HR NOTED TO INCREASE TO 122. NOW BACK AT REST, HR 100-103. PATIENT DENIES OTHER NEEDS OR CONCERNS. CALL LIGHT IN REACH, EXIT ALARM ON. DALTON AT BEDSIDE.
[2024-09-16 07:06] LABS: BASOPHILS 0.4 % (0-2); EOSINOPHILS 0.7 % (0-6); HEMATOCRIT 29.3 % (35.0-50.0); HEMOGLOBIN 9.9 g/dL (12.0-18.0); MCH 29.9 (27-36); MCHC 33.9 g/dl (30-36); MCV 88.1 fl (81-99); MONOCYTES 9.7 % (0-12); NEUTROPHILS 74.2 % (39-80); PLATELET COUNT 116 K/uL (140-440); RBC 3.32 M/ul (4.3-5.7); RDW 15.5 (10.5-15.0)
--- NOTE | 2024-09-16 07:09 | NUR ---
DR. MAIN UPDATED ON LATEST H/H.
--- NOTE | 2024-09-16 07:30 | NUR ---
REPORT RECIVED FROM [facility] SHIFT RN. PATIENT RESTING IN BED WITH AT BEDSIDE. PER DRIVER OPERATOR RN PATIENT HR HAS SLOWLY BEEN INCREASINTO 110 AND 120'S WITH ACTIVITY. PATIENT BP 90'S SYSTOLIC AT TIMES. PATIENT REPROTS DIZZINESS UPON MOVING TO EDGE OF BED. BELLY DISTENED. MD NOTIFIED BY DRIVER OPERATOR RN.
--- NOTE | 2024-09-16 08:15 | NUR ---
MD LEE IN TO SEE PATIENT. PATIENT IS FEELIGN SYMPTOMATIC A TTHIS TIME. PATIENT EXPERIENCING DIZZINESS WITH SITTING AT EDGE OF BED TO URINATE. STAFF WITH PATIENT WHEN HE NEEDS TO VOID TO PREVENT FALLS. PATIENT HR 105. BP 100'S SYSTOLIC. PATIENT COOL CLAMMY AND STATES "I DONT FEEL WELL". BLODO SUGAR CHECKED AND IS 132. PATIENT AT BEDSIDE. WILL PLAN FOR LABS AROUND 1100 TO MONITOR H/H. PATIENT AND FAMILY AGREEABLE TO PLAN OF CARE. AWAITING MD DAMON TO SEE PATIENT FOR CONSULT ON PLAN OF CARE. NO BM PRESENT AT THIS TIME AND PATIENT HAS HAD NO EMESIS. PATIENT DENIES ANY PAIN, BUT ABD DOES APPEAR SLIGHTLY MORE DISTENEDED THIS AM.
--- NOTE | 2024-09-16 08:47 | NUR ---
UR CLINICAL REVIEW: KENDRA, MEETS INPT FOR GI BLEED, UPPER CONTINUED DROP IN HCT WITH BLOOD PRODUCTS, HYPOTENSIVE, [facility]ARDIC [facility] 09/15/2024 @ 1733 ORDER MATCHES REG AUTH PENDING, WILL SEND CLINICALS FOR REVIEW DC TO HOME WHEN MEDICALLY STABLE 09/18/24
[2024-09-16] MEDS ORDERED: MAGNESIUM SULFATE 2 GM/50 ML BAG IV ONE (09:00)
[2024-09-16] MEDS ORDERED: PANTOPRAZOLE SODIUM 40 MG/10 ML VIAL IV SCH ×2 (09:00)
[2024-09-16] MEDS ORDERED: PANTOPRAZOLE SO40 MG PO (09:37)
[2024-09-16] MEDS ORDERED: ATORVASTATIN CA20 MG PO (09:40)
--- NOTE | 2024-09-16 09:40 | NUR ---
NOTIFIED MD ON PATIENTS WORSENING DIZZINESS WITH EVEN MOVEMENT IN BED. PATIENT ENCOURAGED TO URINATE WHILE RESTING IN BED TO PRESENT WORSENING SYMPTOMS. PATIENT AGREEABLE. PATIENTS BLODO PRESSURE TRENDING LOWER. MD AWARE. MD IN TO SEE APTIENT. WILL DO LABS NOW.
[2024-09-16] MEDS ORDERED: PIOGLITAZONE HC15 MG PO (09:41)
[2024-09-16 09:50] LABS: BASOPHILS 0.4 % (0-2); EOSINOPHILS 0.5 % (0-6); HEMATOCRIT 28.3 % (35.0-50.0); HEMOGLOBIN 9.6 g/dL (12.0-18.0); LYMPHOCYTES 14.9 % (24-44); MCHC 33.9 g/dl (30-36); MCV 88.4 fl (81-99); NEUTROPHILS 76.2 % (39-80); PLATELET COUNT 121 K/uL (140-440); RDW 15.5 (10.5-15.0)
--- NOTE | 2024-09-16 09:57 | NUR ---
PT NOT AVAILABLE FOR VISIT. PROVIDED PRAYER.
--- NOTE | 2024-09-16 10:08 | NUR ---
VISITED DURING SPIRITUAL CARE ROUNDS. PT SUPPORTED BY AND DAUGTHER IN ROOM. ALL IN OVERALL GOOD SPIRITS, NO IMMEDIATE NEEDS. FLAVORING MAKER PROVIDED SUPPORTIVE PRESENCE, HOSPITALITY, PRAYER. PT AND FAMILY EXPRESSED GRATITUDE.
--- NOTE | 2024-09-16 10:20 | NUR ---
NOTIFIED OF LABS AND VITALS. MONITORING CHANGES. AWAITING MD DAMON.
--- NOTE | 2024-09-16 10:29 | NUR ---
MED REC COMPLETE
--- NOTE | 2024-09-16 10:40 | NUR ---
INTO SEE PATIENT. PERSONAL HEALTH INFORMATION REVIEWED. PATIENT LIVES AT HOME WITH . THEY HAVE STEPS INTO THE HOME DENIES DIFFCULTY DOING THEM. DRIVES. DENIES DME USE. DENIES DIFFCULTY PAYING UTILITIES OR OBTAINING FOOD. NO FUTHER CM NEEDS OR QUESTIONS AT THIS TIME.
--- NOTE | 2024-09-16 11:40 | NUR ---
MD DAMON INTO SEE PATIENT. PATIENT RESTING IN BED. PATIENT HR ELEVATED AND BP IN THE 80'S SYSTOLIC. PER MD TRANSFUSE 1 MORE PRBC AT THIS TIME AND WILL PLAN UPPER SCOPE FOR PATIENT.
[2024-09-16] MEDS ORDERED: PHARMACY RENAL DOSE ADJUSTMENT 1 DOSE MISC PO SCH (12:00)
--- NOTE | 2024-09-16 13:10 | NUR ---
SURGICAL STAFF HERE TO TAKE PATIENT FOR PROCEDURE. PATIENT TRANSFERED TO BED WITH SOME DIZZINESS.
--- NOTE | 2024-09-16 13:50 | NUR ---
BLOOD ADMINISTRATION FINISHED IN PEROP AREA AND SELLING UNDERWRITER IN ROOM. VSS.
[2024-09-16] MEDS ORDERED: EPINEPHRINE HCL 1 MG/ML ONE (13:58)
[2024-09-16] MEDS ORDERED: SODIUM CHLORIDE 0.9% 20 ML IV ONE (13:58)
[2024-09-16] MEDS ORDERED: SODIUM CHLORIDE 0.9% 40 ML IV ONE (13:59)
[2024-09-16] MEDS ORDERED: KETAMINE in NS 50 MG/5 ML SYR ONE (14:02)
[2024-09-16] MEDS ORDERED: propofoL 200 MG/20 ML VIAL ONE (14:02)
[2024-09-16] MEDS ORDERED: GLYCOPYRROLATE 1 MG/5 ML MDV ONE ×2 (14:17→14:18)
--- NOTE | 2024-09-16 14:40 | NUR ---
PATIENT ARRIVED BACK FROM PROCEDURE WITH ANESTHESIAOLOGIST AND SOFTWARE RELEASE MANAGER. PATIENT HOLDING AIRWAY WITH NO ISSUES. PATIENT ON CO2 MONITOR. DENTURES AT BEDSIDE. PATIENTS FAMILY IN WAITING ROOM. PATIENT DENIES PAIN.
[2024-09-16 15:27] LABS: IS CROSSMATCH COMPATIBLE
[2024-09-16] MEDS ORDERED: FINASTERIDE 5 MG TAB PO SCH (15:56)
[2024-09-16] MEDS ORDERED: TAMSULOSIN HCL 0.4 MG CAP PO SCH (15:56)
[2024-09-16] MEDS ORDERED: SUCRALFATE 1 GM TAB PO SCH (16:00)
--- NOTE | 2024-09-16 16:30 | NUR ---
PATIENTS CARAFATE GIVEN AND WILL WAIT TO GIVE OTHER PO MEDS TO ALLOW TIME TO WORK. PATIENT IS GENERALLY UNCOMFORTABLE IN BED AND WOULD LIKE TO GET UP AND WALK AROUND. EDUCATED PATIENT HIS HR IS ELEVATED AND NOW IS NOT A GOOD TIME UNTILL WE CAN CONTROL HIS HR BETTER. PATIENTS FAMILY IN ROOM AND AGREEABLE TO PLAN OF CARE.
[2024-09-16 17:04] LABS: BASOPHILS 0.5 % (0-2); EOSINOPHILS 0.4 % (0-6); HEMATOCRIT 29.7 % (35.0-50.0); HEMOGLOBIN 10.2 g/dL (12.0-18.0); LYMPHOCYTES 20.2 % (24-44); MCH 30.1 (27-36); MCHC 34.4 g/dl (30-36); MCV 87.5 fl (81-99); MONOCYTES 9.9 % (0-12); PLATELET COUNT 110 K/uL (140-440); RBC 3.39 M/ul (4.3-5.7); RDW 15.4 (10.5-15.0)
[2024-09-16] MEDS ORDERED: carvediloL 6.25 MG TAB PO ONE (17:30)
--- NOTE | 2024-09-16 17:45 | NUR ---
PATIENTS HR HAS BEEN RUNNING MORE IN THE UPPER 90'S TO LOW 100'S SYSTOLIC AND HIS HR IS SLOWLY INCREASING AND IS 120 AT REST AND 140'S WITH ACTIVITY. PATIENT CONTINUES TO DENY DIZZINESS SINCE HIS LAST UNIT OF BLOOD. PATIENT ENCOURAGED TO STAY IN BED TO URINATE UNTIL HR IS BETTER UNDER CONTROL. UPDATED AND NEW ORDER FOR COREG ON EMAR.
[2024-09-16] MEDS ORDERED: ACETAMINOPHEN 325 MG TAB PO PRN (18:30)
--- NOTE | 2024-09-16 18:30 | NUR ---
MD IN UNIT AND VISITED WITH PATIENT. PATIENT REPORTS HE FEELS BETTER THAN WHEN HE CAME IN HE IS JUST VERY UNCOMFRTABLE AND WOULD LIKE TO BE UP WALKING AROUND. REVIEWD PLAN OF CARE WITH MEDICATIONS FOR HR CONTROL. PATIENT CONTINEUS TO DENY DIZZINESS. PATIENT DENIES PAIN. PATIENT DENIES NEED FOR BM, BUT IS PASSING GAS. PATIENTS AT THE BEDSIDE. CALL LIGHT IN REACH AND PATIENT CALLS APPROPRIATELY. NEW ORDER FOR TYLENOL PER MD.
--- NOTE | 2024-09-16 19:32 | NUR ---
REPORT RECEIVED FROM BHARGAVI HELM. PATIENT RESTING IN BED WITH DALTON AT BEDSIDE. PATIENT EXPRESSES DESIRE TO GO HOME AND FRUSTRATION ABOUT BEING IN THE HOSPITAL. REVIEWED PLAN OF CARE. NEITHER PATIENT NOR EXPRESS NEEDS OR CONCERNS AT THIS TIME. CALL LIGHT IN REACH.
[2024-09-16] MEDS ORDERED: LACTATED RINGER'S 1,000 ML IV SCH (20:30)
[2024-09-16] MEDS ORDERED: NOREPINEPHRINE BITARTRATE 250 ML IV SCH (20:45)
[2024-09-16 21:08] LABS: BASOPHILS 0.2 % (0-2); EOSINOPHILS 0.2 % (0-6); HEMATOCRIT 25.3 % (35.0-50.0); HEMOGLOBIN 8.7 g/dL (12.0-18.0); MCH 29.8 (27-36); MCHC 34.3 g/dl (30-36); MCV 86.9 fl (81-99); MONOCYTES 7.2 % (0-12); NEUTROPHILS 81.4 % (39-80); PLATELET COUNT 114 K/uL (140-440); RBC 2.91 M/ul (4.3-5.7); RDW 15.4 (10.5-15.0)
--- NOTE | 2024-09-16 22:04 | NUR ---
COMMENCE BLOCK CHARTING: APPROXIMATELY 19:45 PATIENT COMPLAINED OF DIZZINESS WITH ANY ACTIVITY. MAP TREND 50-60S WITH HR IN THE 120S. PATIENT WAS RESTLESS AND DIAPHORETIC. DENIED CHEST PAIN, SOB OR NAUSEA. REPORTS HE IS STILL PASSING GAS. PLATELETS INFUSION BEGAN AT 20:03. DR. MAIN ROUNDING ON UNIT AND IN TO SEE PATIENT. LAB WORK ORDERED. VERBAL ORDER RECEIVED TO GIVE 500ML LR BOLUS, BOLUS STARTED APPROXIMATELY 20:30. PATIENT CONTINUED TO BE RESTLESS AND AGITATED. JOSE DAVID HAD INITIALLY ORDERED A CT IN LIGHT OF PRESENTATION AND NO BOWEL MOVEMENT OR VOMITING. PATIENT EXPRESSED NEED TO HAVE A BOWEL MOVEMENT. [place] [facility] [place] AT SIDE OF BED. HE WAS NOTEBLY WEAK. HE REPORTED FEELING LIGHTHEADED AND DIZZY AND HAD A NEAR SYNCOPAL EPISODE. ASSISTED BACK IN BED AND DIZZINESS SUBSIDED. PATIENT GIVEN BEDPAIN AND HAD A LARGE SOFT BLACK TARRY BOWEL MOVEMENT. REPORTS HE FELT MUCH BETTER AFTER THAT. IN LIGHT IF VS IMPROVING AND PATIENT PASSING STOOL, DR. MAIN CANCELLED CT AT THIS TIME. PATIENT ALLOWED FOR A MALE PUREWICK TO BE PLACED. REVIEWED PLAN OF CARE WITH PATIENT AND HIS DALTON. DR. MAIN IN ROOM MULTIPLE TIMES TO SEE PATIENT DURING THIS TIME. 10:20 PATIENT IN BETTER SPIRITS WITH VISITORS AT BEDSIDE PRAYING WITH HIM.
--- NOTE | 2024-09-16 22:31 | NUR ---
LUNG SOUND AUSCULATED AFTER BOLUS AND PLATELET COMPLETION. UNCHANGED FROM PREVIOUS ASSESSMENT. PATIENT C/O SOB, WHEN ASKED TO DESCRIBE HE STATES "IT'S FROM MY THROAT BEING SO DRY". ICE CHIPS GIVEN, PATIENT VERBALIZED UNDERSTANDING TO GO SLOW. VISITORS REMAIN AT BESIDE. PATIENT APPEARS TO BE IN BETTER SPIRITS AND JOKING WITH NURSING STAFF AND VISITORS. CALL LIGHT IN REACH.
--- NOTE | 2024-09-16 23:07 | NUR ---
PATIENT RESTING IN BED. USED CALL LIGHT TO REQUEST MORE ICE CHIPS. SMALL AMOUNT GIVEN AND INSTRUCTED PATIENT TO GO SLOW AND LET THEM MELT IN MOUTH. HR CURRENTLY LOW 100S ON MONITOR; 102-105. MOST RECENT BP 94/67 (76). SPO2 98% ROOM AIR. ENCOURAGED REST. MALE PUREWICK TO SUCTION. IVF INFUSING WITHOUT DIFFICULTY. CALL LIGHT IN REACH.
--- NOTE | 2024-09-16 23:46 | NUR ---
PATIENT USED CALL LIGHT TO REQUEST ASSISTANCE WITH A BOWEL MOVEMENT. PATIENT PLACED ON BEDPAN; PATIENT HAD A LARGE, SOFT FORMED BLACK TARRY STOOL. LINEN NOTED TO BE WET. MALE PUREWICK NOTED TO BE LOOSE AND LEAKED. LINEN CHANGE COMPLETED FOR LARGE AMOUNT OF URINE. NEW PUREWICK PLACED. RIGHT AC IV NOTED TO BE LEAKING, FLUSHED IV WITH INCREASE IN LEAKING. IV REMOVED, CATHETER TIP INTACT. CALL LIGHT IN REACH.
[2024-09-17] VITALS (33 sets, daily range): BP systolic 69–112; BP diastolic 49–66
--- NOTE | 2024-09-17 00:35 | NUR ---
PATIENT REQUESTS SCDS BE REMOVED. EDUCATION PROVIDED AGAIN ON USE BUT PATIENT CONTINUES TO REFUSE. REMOVED PER REQUEST.
[2024-09-17 01:08] LABS: BASOPHILS 0.2 % (0-2); HEMOGLOBIN 8.4 g/dL (12.0-18.0); LYMPHOCYTES 6.7 % (24-44); MCH 29.5 (27-36); MCHC 33.8 g/dl (30-36); MCV 87.4 fl (81-99); MONOCYTES 4.9 % (0-12); NEUTROPHILS 88.2 % (39-80); PLATELET COUNT 117 K/uL (140-440); RBC 2.86 M/ul (4.3-5.7); RDW 15.1 (10.5-15.0)
--- NOTE | 2024-09-17 02:15 | NUR ---
PATIENT AWAKE IN BED. REQUESTS THERMOSTAT BE TURNED UP; DONE PER REQUEST. CBG CHECKED AND 1 UNIT INSULIN GIVEN PER EMAR. PATIENT DENIES NEEDS AT THIS TIME. CALL LIGHT IN REACH, BED EXIT ALARM ON.
--- NOTE | 2024-09-17 02:48 | NUR ---
PATIENT RESTING IN BED WITH EYES CLOSED. BP READING WITH MAPS IN THE 50S. PATIENT NOTED TO BE RESTING WITH ARM BENT AND TUCKED UNDER HIS HEAD. BP RECHECK WITH IMPROVED MAP OF 66.
--- NOTE | 2024-09-17 05:06 | NUR ---
PATIENT USED CALL LIGHT TO REQUEST ICE CHIPS. ASSESSMENT CHARTED. PATIENT ENDORSES PASSING FLATUS. DENIES PAIN OR NAUSEA. REPORTS HE WAS ABLE TO GET SOME SLEEP. ABDOMEN APPEARS SLIGHTLY LESS DISTENDED AND BOWEL SOUNDS INCREASING IN ACTIVITY. LAB IN ROOM TO DRAW BLOOD. PATIENT DENIES OTHER NEEDS OR CONCERNS. CALL LIGHT IN REACH.
[2024-09-17 05:07] LABS: BASOPHILS 0.4 % (0-2); EOSINOPHILS 0.1 % (0-6); HEMATOCRIT 23.6 % (35.0-50.0); HEMOGLOBIN 8.2 g/dL (12.0-18.0); LYMPHOCYTES 10.8 % (24-44); MCH 30.3 (27-36); MCHC 34.6 g/dl (30-36); MCV 87.5 fl (81-99); MONOCYTES 5.6 % (0-12); NEUTROPHILS 83.1 % (39-80); PLATELET COUNT 111 K/uL (140-440); RBC 2.69 M/ul (4.3-5.7); RDW 15.6 (10.5-15.0)
[2024-09-17 05:29] LABS: ALBUMIN 2.5 g/dL (3.4-5.0); ALBUMIN/GLOBULIN RATIO 1.14 (1.1-2.4); ANION GAP 10.7 (7-21); BILIRUBIN, TOTAL 0.7 mg/dL (0.2-1.0); CALCIUM 7.5 mg/dL (8.5-10.1); MAGNESIUM 1.9 mg/dL (1.8-2.4); POTASSIUM 3.7 mmol/L (3.5-5.1); PROTEIN, TOTAL 4.7 g/dL (6.4-8.2)
--- NOTE | 2024-09-17 05:38 | NUR ---
PATIENT REPORTED FEELING "SHAKY" CBG CHECKED AND RESULTED AT 155. ASSISTED WITH COVERS. PATIENT THEN USED CALL LIGHT TO REPORT HE COUGHED AND HAD A BOWEL MOVEMENT. PATIENT HAD MEDIUM SIZED LIQUID MELENA STOOL. PARTIAL LINEN CHANGE COMPLETED. PATIENT OBSERVED RAPIDLY CONSUMING ICE CHIPS; ADVISED TO GO SLOW IN LIGHT OF RECENT HEMOCLIPS. PATIENT VERBALIZED UNDERSTANDING BUT APPEARS TO NEED FREQUENT RE-EDUCATION.
--- NOTE | 2024-09-17 06:07 | NUR ---
DR. MAIN UPDATED ON LAB RESULTS AND BP TREND THROUGH SHIFT. ORDER RECEIVED TO TRANSFUSE 1 UNIT PRBC.
[2024-09-17 06:46] LABS: IS CROSSMATCH COMPATIBLE
--- NOTE | 2024-09-17 06:46 | NUR ---
PATIENT ON BED VACA FOR ANOTHER LIQUID MELENA BOWEL MOVEMENT. PRBCS HUNG AND INFUSION STARTED AT 06:41. THIS RN 1:1 FOR FIRST 15 MINUTES. PATIENT VERBALIZED UNDERSTANDING OF S/S OF TRANSFUSION REACTION. PATIENT'S DALTON AT BEDSIDE.
--- NOTE | 2024-09-17 07:30 | NUR ---
REPORT RECIVED FROM AUTOMOBILE BODY REPAIRER RN. PATIENT GETTING BAG 5 OF PRBC AT THIS TIME. PATIENT REPORTS DIZZINESS MOVING IN BED. PATIENT HR LOW 100'S AND BP 90-100'S SYSTOLIC. PATIENT REPORTS SOME SLEEP LAST NIHGT.
[2024-09-17] MEDS ORDERED: Calcium Gluconate in NS 1,000 MG/50 ML BAG IV ONE (08:30)
--- NOTE | 2024-09-17 09:00 | NUR ---
IN TO SEE PATIENT. REVIEWED PLAN OF CARE. LABS WILL BE DONE AT 1030. BLOOD TRANSFUSING CURRENTLY. SEE EMAR FOR MEDICATION ORDERS. PATIENT AT BEDSIDE. PATIENT HAS BEEN ON BED VACA MULTIPLE TIMES AND HAVING SMALL THICK MELANOUS STOOL. PATIENT REPORTS FEELIGN BETTER THAN WHEN HE CAME IN BUT OVER ALL CONTINUES TO FEEL UNWELL. PATIENT REPORTS DIZZINESS WITH MOVING IN BED. PATIENT TIERD HE HAS NOT HAD MUCH SLEEP FOR SEVERAL DAYS. WILL ALLOW PATIENT TO REST HE CAN.
--- NOTE | 2024-09-17 09:43 | NUR ---
PATIENT TURNED TO HIS SIDE AND TRYING TO TAKE A NAP AT THIS TIME. PATIENT BLOOD IS COMPLETE. PATIENT AT BEDSIDE. NO NEEDS AT THIS TIME. PATIENT ON MONITOR.
[2024-09-17 10:33] LABS: BASOPHILS 0.4 % (0-2); HEMATOCRIT 26.3 % (35.0-50.0); HEMOGLOBIN 9.3 g/dL (12.0-18.0); LYMPHOCYTES 11.2 % (24-44); MCH 30.5 (27-36); MCHC 35.1 g/dl (30-36); MCV 86.9 fl (81-99); MONOCYTES 7.6 % (0-12); NEUTROPHILS 80.8 % (39-80); PLATELET COUNT 105 K/uL (140-440); RBC 3.03 M/ul (4.3-5.7); RDW 14.7 (10.5-15.0)
--- NOTE | 2024-09-17 12:30 | NUR ---
PATIENT HAS HAD MULTIPLE VISITORS PRESENT THIS MORNING. PATIENT REPORTS FEELING TIERD. PATIENT RESTING NOW IN BED WITH EYES CLOSED. PATIENT ON MONITOR. HR 90'S-LOW 100'S AND BP 90'S-100'S SYSTOLIC. PATIENT HAS EPISODES OF DIZZINESS WITH MOVEMENT IN THE BED BUT NO SYNCAPAL EPISODES HAVE OCCURED. PATIENT IS REMAINING BEDREST WITH BEDPAN FOR BMS NEEDED AND PUREWICK IN PLACE FOR URINATION D/T DIZZINESS.
--- NOTE | 2024-09-17 13:09 | CONS ---
[facility] [address], [place] [address] Signed DATE OF CONSULTATION: 09/16/2024 CONSULTING PHYSICIAN: Angela Damon M.D. REQUESTING PHYSICIAN: Dr. Molina PROBLEM: Anemia, probable upper GI bleed. HISTORY OF PRESENT ILLNESS: This 73-year-old white man was admitted to the hospital yesterday on September 15, 2024, having presented to the emergency room and evaluated by Dr. Valerio Padgtet, generally feeling unwell. He has had intermittent chest pain and some sharp and lasting 1-2 seconds. He had a neck ache and other issues. He was noted to be anemic with a hematocrit of 30.1. The patient did report dark stool from time to time. He is considered likely to have an occult GI bleed. Digital exam did show melena, strongly guaiac positive. He was admitted to the hospitalist service of Dr. Molina. The patient has undergone a 3 unit blood transfusion and his hematocrit remains relatively persistently low, at approximately 09:44 a.m. it was 28.3 after 3 units of blood. His platelet count is 121,000, it is noted. Additionally, it is noted the patient has been on Plavix as well as low-dose aspirin. His medications since admission have included Protonix, however, medications prior to admission included aspirin, atorvastatin, carvedilol, Plavix, Jardiance, finasteride, glipizide, metformin, Protonix 40 mg a day as well as Entresto. Quite notably, the patient has suffered a GI bleed in the distant past; I saw him in December of 2022. Upper endoscopy was undertaken at that time, where he was found to have a large hiatal hernia and Sarwat's ulcer. A visible vessel was identified and was clipped. He had mild diffuse gastritis and Urbina epithelium without evidence of neoplasm. At present, he has no epigastric pain and denies any hematemesis. He has had black stool prior to admission as noted. REVIEW OF SYSTEMS: He denies any dysphagia or hematemesis. He denies abdominal pain. PHYSICAL EXAMINATION: GENERAL: This is a large white man accompanied by his . VITAL SIGNS: Pulse rate is now 107 and blood pressure 82/50, previously pulse of 108 with blood pressure of 92/58. NECK: Trachea is midline. CHEST: Shows normal respiratory excursion. Electronically Signed By: ANGELA DAMON MD 09/17/24 1309 PATIENT NAME: CARIN GAITAN CONSULTATION DATE OF : 50 REPORT #: [id number] PHYSICIAN: ANGELA DAMON MD PCP: SID JONES MD REPORT IS CONFIDENTIAL AND NOT TO BE RELEASED WITHOUT AUTHORIZATION [facility] [address], [place] [address] Signed ABDOMEN: Obese. EXTREMITIES: Show no clubbing, cyanosis, or edema. LABORATORY STUDIES: This morning shows white count of 10.0, hematocrit 28.3, and platelets are 121,000. Chem profile with normal electrolytes. Chloride elevated at 108. Bilirubin 1.0. Liver enzymes low. ASSESSMENT: The patient clearly has GI bleed and melena and this may be related similarly to what he had in the past or perhaps not at all. It is unclear when he last if ever had colonoscopy. I would recommend upper endoscopy to assess and control if possible any source of upper gastrointestinal bleeding. If there is no such finding, colonoscopy will be recommended. He has had 3 units of packed red cells and I have recommended another be infused at this time. We will anticipate upper endoscopy within the next hour or so. I did discuss this with Dr. Molina, who concurs with this plan. MD DAVIDE Paulino/LEISAL /[id number] cc: DR. MOLINA Copies: ~ Electronically Signed By: ANGELA DAMON MD 09/17/24 1309 PATIENT NAME: CARIN GAITAN CONSULTATION DATE OF : 50 REPORT #: [id number] PHYSICIAN: ANGELA DAMON MD PCP: SID JONES MD REPORT IS CONFIDENTIAL AND NOT TO BE RELEASED WITHOUT AUTHORIZATION
--- NOTE | 2024-09-17 13:09 | OR ---
[facility] [address] [place], [place] [address] Signed DATE OF OPERATION: 09/16/2024 SURGEON: Angela Damon MD PREOPERATIVE DIAGNOSES: 1. Melena and persistent anemia despite transfusion. 2. History of Sarwat ulcer bleed 2022. POSTOPERATIVE DIAGNOSES: 1. 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 2. Bleeding lesion distal esophagus (requiring hemoclip control). 3. Antral gastritis. PROCEDURES: 1. Esophagogastroduodenoscopy with biopsy. 2. Hemostatic control of bleeding lesion distal esophagus with hemoclips x2. ANESTHESIA: Intravenous sedation; propofol, Shon Ewing, SURGICAL INSTRUMENTS INSPECTOR. INDICATION: This 73-year-old white man was admitted by Dr. Molina with hematocrit of 31 and melena. He had no hematemesis. He is known to me from the past having undergone upper endoscopy and found to have a collar ulceration related to hiatal hernia in 2022. The patient is now on Plavix and aspirin related to coronary stenting greater than six months ago. He does have a number of medical problems. He has been transfused now 4 units of blood. His hematocrit has stayed largely at 27. He is slightly tachycardic at 105 with a blood pressure between 88 and 92. He looks far better than those numbers would suggest. He is admitted at this time to undergo upper endoscopy to better characterize the source of his bleeding and provide control if possible. The risk of bleeding, infection, and perforation were reviewed with him and his . They understand and wished to proceed. FINDINGS: He had a long segment Urbina's esophagus, probably 6 to 8 cm at least. There was a bleeding lesion in the distal esophagus, not related to a varix; this may represent a Grace-Shelton tear, it is uncertain, but it did not cross the GE junction proper. It was controlled with hemoclips x2. The remaining stomach did show findings consistent with complex hiatal hernia but no collar ulceration was identified. There was antral gastritis. The duodenum was normal. Electronically Signed By: ANGELA DAMON MD 09/17/24 1309 PATIENT NAME: CARIN GAITAN OPERATIVE REPORT DATE OF : 50 REPORT #: [id number] PHYSICIAN: ANGELA DAMON MD PCP: SID JONES MD REPORT IS CONFIDENTIAL AND NOT TO BE RELEASED WITHOUT AUTHORIZATION [facility] [address] [place], [place] [address] Signed DESCRIPTION OF PROCEDURE: The patient was brought to the endoscopy suite and placed in the lateral decubitus position, given intravenous sedation by the parking enforcement specialist with full cardiopulmonary monitoring. A bite block was placed. An Olympus video upper endoscope was passed in the hypopharynx. The vocal cords were normal. Scope was passed down the esophagus showing no sign of blood or bleeding at that time. The scope was passed into the stomach where a complex hiatal hernia was identified. The antrum was chronically inflamed. The scope was passed through the stomach into the duodenum, which was essentially normal. Biopsies were undertaken of the antrum for CLOtest. In the proximal stomach, there were two rather superficial ulcers that I did not mention previously as they were not bleeding. The scope was withdrawn to the distal esophagus identifying the Urbina's mucosa once again. Upon withdrawal of the scope, there was an area of recent bleeding which appeared to have clot and discontinuity of the mucosa. Irrigation was undertaken. There was no sign of pulsatile bleeding. Hemoclips were applied to the site as there was some oozing of fresh blood at that point. Once hemostasis was considered complete, the scope was carefully withdrawn and no other findings were noted. Scope was reinserted showing durability of the application of the hemoclips to the distal esophagus and no sign of other lesion within the stomach or duodenum. Scope was carefully withdrawn and the patient was taken to the recovery room in good condition having suffered no complications. CONCLUDING DIAGNOSIS: The bleeding lesion must be the distal esophagus based on findings. Would initiate Carafate slurry four times a day. Continue with PPI medication and withhold oral intake for the moment. Consideration should be made for platelet transfusion considering he is more than six months since his coronary stenting x2 and his platelet function is likely nil. MD DAVIDE Paulino/MODL /[id number] cc: Sid Jones MD Electronically Signed By: ANGELA DAMON MD 09/17/24 1309 PATIENT NAME: CARIN GAITAN OPERATIVE REPORT DATE OF : 50 REPORT #: [id number] PHYSICIAN: ANGELA DAMON MD PCP: SID JONES MD REPORT IS CONFIDENTIAL AND NOT TO BE RELEASED WITHOUT AUTHORIZATION [address] Molina Copies: SID JONES DMD ~ Electronically Signed By: ANGELA DAMON MD 09/17/24 1309 PATIENT NAME: CARIN GAITAN OPERATIVE REPORT DATE OF : 50 REPORT #: [id number] PHYSICIAN: ANGELA DAMON MD PCP: SID JONES MD REPORT IS CONFIDENTIAL AND NOT TO BE RELEASED WITHOUT AUTHORIZATION
[2024-09-17] MEDS ORDERED: POLYETHYLENE GLYCOL 3350 BOTTLE PO ONE (13:15)
--- NOTE | 2024-09-17 14:47 | NUR ---
PATIENT WOKE FROM [facility] AND PROVIDED WITH MIRLAX PREP AND CHICKEN BROTH. PATIENTS KIDS ARRIVED. PATIENT UPDATED ON PLAN OF CARE AND NO QUESTIONS AT THIS TIME.
--- NOTE | 2024-09-17 16:15 | NUR ---
TWO RNS IN TO BE LINEN CHANGE AND BEDBATH. PATIENT USED BEDPAN WITH MELENA STOOL PRESENT. PATIENTS MALE PUREWICK LEAKED. NEW PUREWICK PLACED. PATIENT PROVIDED WITH BEDBATH. PATIENT REPORTS DIZZINESS UPON MOVEMENT IN THE BED AND FEELING WEAK. PATIENT HAS HAD ALMOST 1 BOTTLE OF PREP THUS FAR. MD IN TO CHECK ON PATIENT. UPDATED WITH PATIENT STATUS. LABS AT 1700. NO OTHER CHANGES AT THSI TIME.
--- NOTE | 2024-09-17 16:37 | NUR ---
PATIENT CALLED TO HAVE LIQUID BM. PATIENT CONTINUES TO USE BEDPAN D/T DIZZINESS WITH MOVEMENT AND TOELRATES WELL.
[2024-09-17 17:06] LABS: BASOPHILS 0.3 % (0-2); EOSINOPHILS 0.1 % (0-6); LYMPHOCYTES 11.5 % (24-44); MCH 30.3 (27-36); MCHC 34.7 g/dl (30-36); MCV 87.5 fl (81-99); MONOCYTES 8.7 % (0-12); NEUTROPHILS 79.4 % (39-80); PLATELET COUNT 110 K/uL (140-440); RBC 2.97 M/ul (4.3-5.7)
--- NOTE | 2024-09-17 18:15 | NUR ---
PATIENT CALLED STAFF IN TO ROOM. PATIENT REPORTING SUDDEN UNWELL FEELING. PATIENT STATES "I DONT KNOW I FEEL LIKE I MIGHT PASS OUT, I HAVE PAIN IN MY BACK SHOULDER, AND HEAD". PATIENT VITALS REMAIN UNCHANGED. PATIENT BLOOD SUGAR CHECKED. SEE EMAR. PATIENT LAID BACK AND UNCHANGED. PATIENT DENIES NEED TO HAVE BM AT THIS TIME. MD NOTIFIED AND WILL BE DOWN TO SEE PATIENT.
--- NOTE | 2024-09-17 19:24 | NUR ---
MD IN TO SEE PATIENT AND CT ORDERED. PATIENT AND FAMILY UPDATED ON PLAN OF CARE. THIS RN AND TUAN RN TOOK PATIENT TO CT. PATIENT TOLERATED WELL AND BACK IN ROOM. REPORT GIVEN TO RELAY ENGINEER RNS.
--- NOTE | 2024-09-17 19:30 | NUR ---
REPORT RECEIVED FROM BHARGAVI HELM. PATIENT ASSISTED OFF BEDPAN. DENIES NEEDS AT THIS TIME. CALL LIGHT IN REACH.
--- NOTE | 2024-09-17 20:02 | NUR ---
DR. MAIN AT BEDSIDE REVIEWING RESULTS OF CT WITH PATIENT AND .
--- NOTE | 2024-09-17 20:40 | NUR ---
PATIENT RESTING IN BED WITH AT BEDSIDE. SECOND BOTTLE OF MIRALAX STARTED. PLAN OF CARE REVIEWED FOR THE SHIFT; BOTH PATIENT AND DENY QUESTIONS OR CONCERNS. CALL LIGHT IN REACH.
--- NOTE | 2024-09-17 22:15 | NUR ---
LAB UNAVAILABLE TO DO TIMED DRAW. PERIPHERAL DRAW TO RIGHT HAND ON FIRST ATTEMPT COMPLETED; BLOOD SEND TO LAB. PATIENT RESTING AT THIS TIME.
[2024-09-17 22:38] LABS: BASOPHILS 0.3 % (0-2); EOSINOPHILS 0.3 % (0-6); HEMATOCRIT 25.1 % (35.0-50.0); HEMOGLOBIN 8.7 g/dL (12.0-18.0); LYMPHOCYTES 17.2 % (24-44); MCH 30.2 (27-36); MCHC 34.6 g/dl (30-36); MCV 87.4 fl (81-99); MONOCYTES 9.3 % (0-12); NEUTROPHILS 72.9 % (39-80); PLATELET COUNT 104 K/uL (140-440); RBC 2.87 M/ul (4.3-5.7); RDW 14.9 (10.5-15.0)
--- NOTE | 2024-09-17 22:38 | NUR ---
PATIENT CONTINUES TO HAVE FREQUENT LIQUID BOWEL MOVEMENTS. ENCOURAGED TO CONTINUE TO DRINK BOWEL PREP.
--- NOTE | 2024-09-17 22:45 | NUR ---
CBC RESULTS RELAYED TO DR. MAIN. NO ORDER TO TRANSFUSE BLOOD AT THIS TIME; EXPECTED RESULTS. ORDER RECEIVED TO START D5LR AT 75ML/HR WHEN PATIENT IS NPO AT MIDNIGHT. PATIENT UPDATED ON LAB RESULTS AND NO NEED FOR TRANSFUSION AT THIS TIME. CONTINUES TO DRINK BOWEL PREP AND HAVE WATERLY MELENA COLORED STOOLS. BARRIER CREAM APPLIED TO BUTTOCKS AFTER BOWEL MOVEMENTS.
[2024-09-18] VITALS (19 sets, daily range): BP systolic 86–128; BP diastolic 44–70
--- NOTE | 2024-09-18 00:27 | NUR ---
PATIENT MADE NPO. D5LR AT 75ML/HR INFUSING IN LUE IV SITE. PATIENT CONTINUES TO PASS LIQUID STOOLS THAT APPEAR TO BECOMING MORE CLEAR. DENIES NEEDS AT THIS TIME.
--- NOTE | 2024-09-18 00:43 | NUR ---
PATIENT CONTINUES TO HAVE LIQUID BOWEL MOVEMENTS; BMS CONTINUE TO BECOME MORE CLEAR, MOSTLY YELLOW TO BROWNISH/GREEN. PATIENT REQUESTED ICE CHIPS. RE-EDUCATED ON NPO STATUS AND MEANING IN PREPARATION FOR PROCEDURE LATER TODAY. PATIENT STATES "I MIGHT BE BY THEN WITHOUT ICE CHIPS".
--- NOTE | 2024-09-18 03:13 | NUR ---
PATIENT RESTING IN BED WITH EYES CLOSED. RESPIRATIONS EVEN AND UNLABORED. HR IN THE 70S AT THIS TIME. SPO2 96% ON RA. CALL LIGHT IN REACH.
--- NOTE | 2024-09-18 05:07 | NUR ---
PATIENT WOKE EASILY TO LAB IN ROOM FOR AM DRAW. REPORTS HE FELT LIKE HE GOT GOOD SLEEP. PATIENT DENIES PAIN, CONCERNS OR NEEDS AT THIS TIME. ASSESSMENT CHARTED. BOTH IV SITES PATENT WITH + BLOOD RETURN. IVF INFUSING WITHOUT DIFFICULTY. CALL LIGHT IN REACH.
[2024-09-18 05:10] LABS: BASOPHILS 0.5 % (0-2); HEMATOCRIT 23.5 % (35.0-50.0); HEMOGLOBIN 8.1 g/dL (12.0-18.0); LYMPHOCYTES 18.1 % (24-44); MCH 30.3 (27-36); MCHC 34.7 g/dl (30-36); MCV 87.5 fl (81-99); MONOCYTES 8.9 % (0-12); NEUTROPHILS 71.5 % (39-80); PLATELET COUNT 97 K/uL (140-440); RBC 2.69 M/ul (4.3-5.7)
[2024-09-18 05:23] LABS: ALBUMIN 2.5 g/dL (3.4-5.0); ALBUMIN/GLOBULIN RATIO 1.19 (1.1-2.4); ANION GAP 8.7 (7-21); BILIRUBIN, TOTAL 0.7 mg/dL (0.2-1.0); BUN/CREATININE RATIO 36.58 (6.0-28.6); CALCIUM 7.4 mg/dL (8.5-10.1); CREATININE, SERUM 0.82 mg/dL (0.70-1.30); POTASSIUM 3.7 mmol/L (3.5-5.1); PROTEIN, TOTAL 4.6 g/dL (6.4-8.2)
--- NOTE | 2024-09-18 05:42 | NUR ---
PATIENT BACK ON BEDPAIN FOR BOWEL MOVEMENT. STOOL IS LIGHT BROWN TO YELLOW LIQUID. NO OTHER NEEDS OR CONCERNS VOICED. CALL LIGHT IN REACH.
--- NOTE | 2024-09-18 08:25 | NUR ---
IN PATIENT'S ROOM FOR AM ASSESSMENT, VITALS AND INSURANCE VERIFICATION CLERK. PT AWAKENS EASILY AND IS SOFT SPOKEN. PT STATES HE FEELS OKAY OVERALL AND DID GET SOME SLEEP LAST NIGHT, BUT IS STILL NOT FEELING THAT WELL OVERALL. PT'S IN ROOM. PLAN FOR PATIENT TO HAVE UPPER AND LOWER SCOPE TODAY WITH DR. DAMON. AM MEDS GIVEN WITH SMALL SIP OF WATER AND THEN CARAFATE SLURRY GIVEN. IVF CONTINUE AT 75 ML/HR. DR. MAIN IN TO SEE PATIENT AND ALSO DISCUSSING PLAN OF CARE. PATIENT TO RECEIVE 1 MORE UNIT OF PRBCs. CBG 140 AND NO SS INSULIN NEEDED. HR IN THE 60-70s AND BP AT 0800 IS 128/55. PT DENIES FURTHER NEEDS. WILL CONTINUE TO MONITOR.
[2024-09-18 09:46] LABS: IS CROSSMATCH COMPATIBLE
--- NOTE | 2024-09-18 10:42 | NUR ---
1 UNIT OF PRBCs STARTED AT 1007 INTO LEFT HAND IV SITE, WHICH IS FLUSHING WELL, AT A RATE OF 120 ML/HR FOR THE FIRST 15 MINS. PT TOLERATED THIS WELL AND BLOOD RATE INCREASED TO 175 ML/HR NOW. PT'S PROCEDURE IS SCHEDULED FOR 1200. PT HAS BEEN NPO EXCEPT HIS AM CARAFATE AND HIS PO MEDS THIS AM. PT'S DALTON REMAINS IN ROOM AND ATTENTIVE TO PATIENT. PT VOIDING TO [employer]. HR REMAINS IN THE 70s, WITH A 1ST DEGREE AV BLOCK AND A WIDE BBB. LAST BP 117/52.
--- NOTE | 2024-09-18 11:08 | NUR ---
PATIENT'S FAMILY IN ROOM WITH HIM NOW. PATIENT IS READY FOR HIS PROCEDURE AT 1200. NEW DRAW SHEET PLACED UNDER PATIENT. PATIENT STILL VOIDING TO [employer]. DENIES FURTHER NEEDS AT THIS TIME.
[2024-09-18] MEDS ORDERED: fentaNYL citrate 100 MCG/2 ML VIAL ONE (11:59)
[2024-09-18] MEDS ORDERED: LIDOCAINE HCL 2% 5 ML SDV ONE (11:59)
[2024-09-18] MEDS ORDERED: KETAMINE in NS 50 MG/5 ML SYR ONE (11:59)
[2024-09-18] MEDS ORDERED: propofoL 200 MG/20 ML VIAL ONE (12:00)
--- NOTE | 2024-09-18 12:07 | NUR ---
PATIENT TAKEN TO PROCEDURE AT 1200. UNIT OF BLOOD JUST FINISHING UPON ARRIVAL OF OR TEAM AND TAKEN WITH THEM TO FINISH THE NS FLUSH. PT ABLE TO SCOOT SELF FROM CCU BED TO STRETCHER.
[2024-09-18] MEDS ORDERED: ePHEDrine sulfate 50 MG/ML AMP ONE (12:26)
[2024-09-18 13:20] LABS: BASOPHILS 0.4 % (0-2); EOSINOPHILS 1.2 % (0-6); HEMATOCRIT 27.3 % (35.0-50.0); HEMOGLOBIN 9.3 g/dL (12.0-18.0); LYMPHOCYTES 17.3 % (24-44); MCH 30.1 (27-36); MCHC 34.2 g/dl (30-36); MCV 88.2 fl (81-99); NEUTROPHILS 71.1 % (39-80); PLATELET COUNT 101 K/uL (140-440); RBC 3.09 M/ul (4.3-5.7); RDW 15.2 (10.5-15.0)
[2024-09-18 13:59] LABS: ABO A; RH NEGATIVE
[2024-09-18 14:00] LABS: ANTIBODY SCREEN NEGATIVE
--- NOTE | 2024-09-18 14:14 | NUR ---
PATIENT GIVEN JELLO AND PUDDING, AND WATER AT THIS TIME. PT EXCITED TO START EATING SOME FOOD AGAIN AND DENIES ANY PAIN AT THIS TIME. HR IN THE 90s AT THIS TIME. PT'S REMAINS IN ROOM. IVF ARE D/C.
--- NOTE | 2024-09-18 15:01 | NUR ---
PATIENT STATES, "I NEED TO START MOVING AROUND." PATIENT FEELING READY TO GET UP AND OUT OF BED. PATIENT SAT AT EDGE OF BED FIRST WITHOUT ANY DIZZYNESS OR LIGHTHEADEDNESS, THEN STOOD BY HIMSELF, AND STOOD STRONGLY AGAIN WITHOUT ANY SIGNS OF DIZZYNESS. PATIENT NOW SITTING IN CHAIR AND FEELING GOOD TO HAVE THIS CHANGE IN POSITION. PT TOLERATED JELLO AND PUDDING WELL, AND IS DRINKING WATER. PT'S REMAINS IN ROOM. CALL LIGHT IN REACH.
[2024-09-18] MEDS ORDERED: INSULIN LISPRO 100 UNIT/ML ML SUB-Q SCH (17:00)
[2024-09-18] MEDS ORDERED: IBLOOD GLUCOSE TEST STRIP 1 EA TEST VI SCH (17:00)
--- NOTE | 2024-09-18 19:03 | NUR ---
PATIENT REMAINS UP IN CHAIR. PT GIVEN BATH WIPE DOWN AND SHOWER CAP PROVIDED. PT APPRECIATIVE BUT IS EAGER TO D/C HOME WHEN HE IS ABLE TO. PT'S REMAINS IN ROOM.
--- NOTE | 2024-09-18 19:48 | NUR ---
REPORT RECEIVED FROM BHARGAVI DICKERSON. PATIENT SITTING UP IN BED. REPORTS HE FEELS BETTER. CALL LIGHT IN REACH. DALTON AT CHAIRSIDE.
[2024-09-18 20:10] LABS: BASOPHILS 0.4 % (0-2); EOSINOPHILS 1.2 % (0-6); HEMOGLOBIN 9.7 g/dL (12.0-18.0); LYMPHOCYTES 14.2 % (24-44); MCH 30.6 (27-36); MCHC 34.7 g/dl (30-36); MCV 88.1 fl (81-99); MONOCYTES 9.1 % (0-12); NEUTROPHILS 75.1 % (39-80); PLATELET COUNT 94 K/uL (140-440); RBC 3.18 M/ul (4.3-5.7); RDW 14.8 (10.5-15.0)
--- NOTE | 2024-09-18 20:26 | NUR ---
DR. MAIN IN TO ROUND ON PATIENT AND REVIEW MOST RECENT CBC RESULTS; ANSWERED PATIENT AND FAMILY QUESTIONS AND CONCERNS. PATIENT REMAINS UP IN CHAIR WITH AND DAUGHTER VISITING.
--- NOTE | 2024-09-18 20:55 | EKG ---
[facility] [address] [facility] [place] [address] Signed Wide QRS rhythm Left axis deviation Left bundle branch block Abnormal ECG When compared with ECG of 15-SEP-2024 15:40, Wide QRS rhythm has replaced Sinus rhythm Confirmed by Kristin Main MD () on 09/18/2024 8:55:49 PM Electronically Signed By: KRISTIN MAIN MD 09/18/242054 PATIENT NAME: CARIN GAITAN Electrocardiogram DATE OF : 50 PHYSICIAN: KRISTIN MAIN MD REPORT #: [id number] REPORT IS CONFIDENTIAL AND NOT TO BE RELEASED WITHOUT AUTHORIZATION
--- NOTE | 2024-09-18 21:04 | NUR ---
PATIENT WISHED TO GO BACK TO BED BUT REPORTED FEELING GOOD WHILE STANDING. AMBULATED IN ROOM FROM ONE SIDE OF THE BED TO THE OTHER BUT THEN FELT "TIPSY". FEELING RESOLVED QUICKLY AND PATIENT GET INTO BED INDEPENDENTLY. SCDS ON. CALL LIGHT IN REACH WELL PERSONAL ITEMS. DAUGHTER REMAINS SUPPORTIVE AT BEDSIDE. PLAN OF CARE REVIEWED FOR REMAINDER OF SHIFT; PATIENT DENIES QUESTIONS OR CONCERNS.
[2024-09-19] VITALS (7 sets, daily range): BP systolic 100–124; BP diastolic 54–69
--- NOTE | 2024-09-19 01:12 | NUR ---
PATIENT RESTING IN BED AWAKE. PATIENT DENIES PAIN. REPORTS HE CAN'T GET COMFORTABLE IN HOSPITAL BED. OFFERED MORE PILLOW SUPPORT OR COMFORT MEASURES BUT PATIENT DECLINES AT THIS TIME STATING "I WILL BE OK". CALL LIGHT IN REACH AND PATIENT AGREES TO CALL FOR NEEDS.
--- NOTE | 2024-09-19 03:26 | NUR ---
PATIENT RESTING IN BED WITH EYES CLOSED. RESPIRATIONS EVEN AND UNLABORED. HR 65; SPO2 97% RA. CALL LIGHT IN REACH WITH BED EXIT ALARM ON.
[2024-09-19 05:32] LABS: BASOPHILS 0.4 % (0-2); EOSINOPHILS 2.9 % (0-6); HEMATOCRIT 28.3 % (35.0-50.0); HEMOGLOBIN 9.9 g/dL (12.0-18.0); LYMPHOCYTES 19.9 % (24-44); MCH 30.9 (27-36); MCHC 34.9 g/dl (30-36); MCV 88.5 fl (81-99); MONOCYTES 9.2 % (0-12); NEUTROPHILS 67.6 % (39-80); PLATELET COUNT 106 K/uL (140-440)
--- NOTE | 2024-09-19 05:35 | NUR ---
PATIENT WOKE TO LAB IN ROOM FOR AM DRAW. OOB TO WEIGH ON STANDING SCALE. PATIENT ASSISTED TO CHAIR. NO COMPLAINTS OF DIZZINESS WITH ACTIVITY. FRESH BEVERAGES PROVIDED. CALL LIGHT AND PERSONAL ITEMS IN REACH.
[2024-09-19 05:46] LABS: ALBUMIN 2.9 g/dL (3.4-5.0); ALBUMIN/GLOBULIN RATIO 1.26 (1.1-2.4); ANION GAP 10.4 (7-21); BILIRUBIN, TOTAL 1.1 mg/dL (0.2-1.0); BUN/CREATININE RATIO 19.23 (6.0-28.6); CALCIUM 7.7 mg/dL (8.5-10.1); CREATININE, SERUM 0.78 mg/dL (0.70-1.30); POTASSIUM 3.4 mmol/L (3.5-5.1); PROTEIN, TOTAL 5.2 g/dL (6.4-8.2)
[2024-09-19] MEDS ORDERED: POTASSIUM CHLORIDE 10 MEQ TABCR PO ONE (07:30)
--- NOTE | 2024-09-19 07:55 | NUR ---
PATIENT UP IN CHAIR AND VISITING WITH HIS THIS AM ON INTIAL ASSESSMENT. PT DENIES PAIN. PT STATES HE IS EAGER TO GO HOME. AM MEDS GIVEN. PT DENIES ANY SHORTNESS OF BREATH OR PAIN AT THIS TIME.
--- NOTE | 2024-09-19 08:58 | NUR ---
DR. MAIN IN TO SEE PATIENT AT THIS TIME. PT AMBULATES INTO BATHROOM TO VOID. PT EAGER TO D/C HOME. SOME HOME MEDS TO BE RESUMED TODAY. AWAITING RECOMMENDATIONS FROM DR. DAMON REGARDING DIET ADVANCEMENT. WILL CONTINUE TO MONITOR.
[2024-09-19] MEDS ORDERED: FUROSEMIDE 40 MG TAB PO SCH (09:10)
[2024-09-19] MEDS ORDERED: carvediloL 6.25 MG TAB PO SCH (09:11)
--- NOTE | 2024-09-19 09:15 | NUR ---
ALERT AND ORIENTED, UP IN RECLINER. IN ROOM. DISCUSSED DC PLAN. PLAN TO DC TO HOME WHEN MEDICALLY STABLE. NO CURRENT CM NEEDS AT THIS TIME.
--- NOTE | 2024-09-19 09:40 | NUR ---
Scheduled medications administered at this time, VSS, patient tolerates well. PT/OT in room to eval and treat.
--- NOTE | 2024-09-19 10:38 | NUR ---
09/19/24 1038 Gillian Johnson NO PACU CHARGE - BACK TO CCU
--- NOTE | 2024-09-19 10:39 | NUR ---
VISITED DURING SPIRITUAL CARE ROUNDS. PT SUPPORTED BY IN ROOM. BOTH IN OVERALL GOOD SPIRITS, NO SIGNIFICANT NEEDS. NUCLEAR OPERATIONS SPECIALIST PROVIDED SUPPROTIVE PRESENCE, ANTICIPATORY GUIDANCE, EXPLORED DISCERNMENT, PROVIDED PRAYER, FACILITATED INTERACTION WITH THERAPY ANIMAL. PT AND EXPRESSED GRATITUDE.
--- NOTE | 2024-09-19 12:55 | NUR ---
UR CONCURRENT REVIEW: MCG- PER MCG REVIEW DOES NOT MEET GL DAY 2 DUE TO ABILITY TO TOLERSATE ORAL DIET Ember INPT 09/15/24 @ 9227 ORDER MATCHES REG CLINICAL FAXED TO [facility] FOR AUTH UPDATE DISCHARGE TO HOME. ANTICIPATE DC TOMORROW IF SOFT DIET IS TOLERATED
[2024-09-19] MEDS ORDERED: PANTOPRAZOLE SO40 MG PO (13:52)
[2024-09-19] MEDS ORDERED: SUCRALFATE1 GM PO (13:52)
--- NOTE | 2024-09-19 14:33 | OR ---
[facility] [address], [place] [address] Signed DATE OF OPERATION: 09/18/2024 SURGEON: Angela Damon MD PREOPERATIVE DIAGNOSES: 1. Recent gastrointestinal bleeding attributed to distal esophageal erosive lesion (hemoclips yesterday). 2. Hematocrit drift. POSTOPERATIVE DIAGNOSES: 1. No evidence of esophageal, gastric or duodenal bleeding or blood. 2. Polyps x3 of colon (nonbleeding). PROCEDURES: 1. Esophagogastroduodenoscopy. 2. Total colonoscopy to cecum with cold snare polypectomy x1, cold morcellation polypectomy x2. ANESTHESIA: Intravenous sedation, propofol infusion, Shon Ewing CRNA. INDICATION: This 73-year-old white man was admitted to the hospital on 09/15/2024. Care assumed by the hospitalist, Dr. Molina recently. He had significant melena, but no hematemesis. He underwent upper endoscopy by me yesterday. Notably, he had been on Plavix and aspirin. Upper endoscopy confirmed Urbina's esophagus and erosive lesion of the distal esophagus for which hemoclip application was undertaken to secure hemostasis. The stomach and duodenum had no sign of lesion. Additionally, he subsequently underwent platelet infusion one six-pack and certainly has been withheld from his Plavix and aspirin. The patient has had improvement of his hemodynamics quite markedly. He still has had drift of his hematocrit to 23.5 today. Transfusion has been initiated. At this point, I believe he has had 6 units of blood altogether. He is hemodynamically much better today with a blood pressure of 115 systolic and a pulse of 60 to 70. I have recommended upper endoscopy to affirm no evidence of ongoing bleeding of the upper gastrointestinal tract and colonoscopy as he has not had colon evaluation in over 20 years. The risk of bleeding, infection, and perforation related to above those procedures was reviewed with him. He understands and wished to proceed. FINDINGS: There was no sign of bleeding lesion on the upper evaluation. The hemoclips from Electronically Signed By: ANGELA DAMON MD 09/19/24 1433 PATIENT NAME: CARIN GAITAN OPERATIVE REPORT DATE OF : 50 REPORT #: [id number] PHYSICIAN: ANGELA DAMON MD PCP: SID JONES MD REPORT IS CONFIDENTIAL AND NOT TO BE RELEASED WITHOUT AUTHORIZATION [facility] [address], [place] [address] Signed previously were not seen nor probably present. There was no sign of blood, active bleeding, ulceration, or other abnormality. He did have long segment Urbina's esophagus as before of course. On colonoscopy, the prep was quite excellent. Complete colonoscopy was undertaken to the cecum. There were three polyps in total, two in the right colon, one in the cecum, all excised. There is no sign of active bleeding, significant diverticulosis or other abnormality. Intubation of the ileum was not forthcoming and therefore, the gastrointestinal tract between the 3rd portion of the duodenum and the ileocecal valve is uncertain. DESCRIPTION OF PROCEDURE: The patient was brought to the endoscopy suite and placed in lateral decubitus position, given intravenous sedation with propofol sedational technique by the neurologist. Bite block was placed. An Olympus video upper endoscope was passed in the hypopharynx and into the esophagus. Throughout the length of the esophagus, it was normal, though he did have Urbina's epithelium in the distal portion. Hemoclips that had been recently placed were not visualized and assumed to have passed. There was no sign of bleeding lesion or even evidence of the lesion from yesterday, however. The scope was passed to the stomach, which was insufflated with air. Rugal folds were normal. There was no sign of blood, inflammation, clotting, or other issue. Evidence of ongoing Carafate use was noted, however. The duodenum was normal as well. The scope was withdrawn and removed. The patient was then prepared for colonoscopy. Digital rectal examination was normal. An Olympus video colonoscope was passed in the rectum and manipulated easily throughout the colon ultimately intubating the cecum itself. The ileocecal valve and cecum appeared normal. There was no sign of blood, recent blood clot, or other abnormality, though there was a small polyp. This was excised with cold morcellation technique. In the mid ascending colon was a flat polyp, again not bleeding, but was excised with cold snare technique and a nearby polyp excised with cold morcellation technique. Further withdrawal of scope showed no other abnormality throughout the colon except the internal hemorrhoids on retroflexed view. The scope was removed. The patient was taken to the recovery room in good condition. CONCLUSION DIAGNOSIS: No evidence of ongoing bleeding or lesion to account for bleeding. PLAN: We will continue with PPI medication, Carafate as previously noted. Avoidance of his anticoagulant, anti-platelet regimen and continued monitoring. Repeat colonoscopy would be recommended in 7-10 years. He will return to the intensive care unit for further management. Electronically Signed By: ANGELA DAMON MD 09/19/24 1433 PATIENT NAME: CARIN GAITAN OPERATIVE REPORT DATE OF : 50 REPORT #: [id number] PHYSICIAN: ANGELA DAMON MD PCP: SID JONES MD REPORT IS CONFIDENTIAL AND NOT TO BE RELEASED WITHOUT AUTHORIZATION [facility] [address] [place], [place] [address] Signed MD DAVIDE Paulino/CHAYO /[id number] cc: Dr. Molina Copies: ~ Electronically Signed By: ANGELA DAMON MD 09/19/24 1433 PATIENT NAME: CARIN GAITAN OPERATIVE REPORT DATE OF : 50 REPORT #: [id number] PHYSICIAN: ANGELA DAMON MD PCP: SID JONES MD REPORT IS CONFIDENTIAL AND NOT TO BE RELEASED WITHOUT AUTHORIZATION
[2024-09-19] MEDS ORDERED: PANTOPRAZOLE SODIUM 40 MG TABEC PO SCH (21:00)
[2024-09-20] MEDS ORDERED: CEPHALEXIN500 M1 PO (13:29)
--- NOTE | 2024-09-20 19:01 | PATH ---
[facility] [address] [facility] [place] [place] [address] Signed SPECIMEN(S): A ANTRUM BIOPSY SPECIMEN SOURCE: A. ANTRUM BIOPSY CLINICAL HISTORY: GI bleed, erosive ulcer GE junction, nonbleeding ulcers of stomach FINAL PATHOLOGIC DIAGNOSIS: Stomach, antrum, biopsy: - Gastric antral-type mucosa with mild superficial chronic inflammation. - No acute or active inflammation identified. - No H. pylori-like organisms identified on routine HE-stained histologic sections. - Negative for intestinal metaplasia, dysplasia, and malignancy. SDL MICROSCOPIC EXAMINATION: Histologic sections of all submitted blocks are examined by light microscopy. These findings, together with the gross examination, support the pathologic diagnosis. GROSS DESCRIPTION: The specimen, labeled and designated "Dell, antrum biopsy," is received in formalin and consists of two kim soft tissue fragments, ranging from 0.3-0.4 cm. Entirely submitted in (A1). VB (under the direct supervision of a pathologist) The Gross Description was prepared using a voice recognition system. The report was reviewed for accuracy; however, sound-alike word errors, addition and/or deletions may occur. If there are any questions about this report, please contact Client Services. ADDITIONAL NOTES: Immunohistochemical and/or in situ hybridization studies if performed in this case included appropriate positive controls that reacted as expected. This test was developed and its performance characteristics determined by [facility]. It has not been cleared or approved by the U.S. Food and Drug Administration. The FDA has determined that such clearance or approval is not necessary. This test is used for clinical purposes. It should not be regarded as investigational or for research. [facility] is certified under the PATIENT NAME: CARIN GAITAN PATHOLOGY DATE OF : 50 REPORT #: [id number] PHYSICIAN: DALJIT PATHOLOGY PCP: SID JONES MD REPORT IS CONFIDENTIAL AND NOT TO BE RELEASED WITHOUT AUTHORIZATION [facility] [address] [place] [address] Signed Clinical Laboratory Improvement Amendments of 1988 (CLIA) as qualified to perform high complexity clinical laboratory testing. PERFORMING LABORATORY: Technical component was performed by [facility], [address] [place] [id number] (CLIA# [id number]). Professional interpretation was performed by [facility], [address] [place] [id number] (CLIA#: [id number]). Diagnostician: Calli Mooney MD Pathologist Electronically Signed 09/20/2024 Copies: ~ PATIENT NAME: CARIN GAITAN PATHOLOGY DATE OF : 50 REPORT #: [id number] PHYSICIAN: DALJIT PATHOLOGY PCP: SID JONES MD REPORT IS CONFIDENTIAL AND NOT TO BE RELEASED WITHOUT AUTHORIZATION
== END 2024-09-19 14:25 | disposition home or self-care (01) | DRG 378 ==
LOC: ED 15:39 → CCU 17:37
PROVIDERS: Emergency Medicine; Surgery; ADMIT Family Medicine; ATTEND Family Medicine
PROC: 30233N1 Transfusion of Nonautologous Red Blood Cells into Peripheral Vein, Percutaneous Approach (ICD-10-PCS; 2024-09-15)
PROC: 30233R1 Transfusion of Nonautologous Platelets into Peripheral Vein, Percutaneous Approach (ICD-10-PCS; 2024-09-15)
PROC: 0W3P8ZZ Control Bleeding in Gastrointestinal Tract, Via Natural or Artificial Opening Endoscopic (ICD-10-PCS; 2024-09-16)
PROC: 0DB78ZX Excision of Stomach, Pylorus, Via Natural or Artificial Opening Endoscopic, Diagnostic (ICD-10-PCS; principal; 2024-09-16 13:45)
PROC: 0DBH8ZZ Excision of Cecum, Via Natural or Artificial Opening Endoscopic (ICD-10-PCS; 2024-09-18 12:00)
DX: K29.71 Gastritis, unspecified, with bleeding (principal); I31.39 Other pericardial effusion (noninflammatory); I48.91 Unspecified atrial fibrillation; I11.0 Hypertensive heart disease with heart failure; E11.9 Type 2 diabetes mellitus without complications; I50.9 Heart failure, unspecified; I44.0 Atrioventricular block, first degree; E78.5 Hyperlipidemia, unspecified; N40.0 Benign prostatic hyperplasia without lower urinary tract symptoms; D64.9 Anemia, unspecified; K22.70 Barrett's esophagus without dysplasia; K63.5 Polyp of colon; K44.9 Diaphragmatic hernia without obstruction or gangrene; E83.42 Hypomagnesemia; D69.6 Thrombocytopenia, unspecified; Z86.711 Personal history of pulmonary embolism; Z90.49 Acquired absence of other specified parts of digestive tract; Z95.5 Presence of coronary angioplasty implant and graft; Z98.42 Cataract extraction status, left eye; Z98.41 Cataract extraction status, right eye; Z88.2 Allergy status to sulfonamides; Z79.899 Other long term (current) drug therapy; Z79.82 Long term (current) use of aspirin; Z79.84 Long term (current) use of oral hypoglycemic drugs
CPT/HCPCS: 00813; 36415; 36430; 71045; 71260; 74177; 80053; 83605; 83735; 84100; 84484; 85025; 86850; 86900; 86901; 86922; 93005; 93010; A9270; J0171; J1815; J2003; J2470; J2704; J3010; J3475; J3490; J7040; J7121; P9035; Q9967

== ENCOUNTER 2024-09-20 09:51 | Emergency (ER) | payer OTHER, MEDICARE ==
[~2024-09-20] VITALS: Ht 177.8 cm; Wt 103.4 kg
[~2024-09-20 09:51] MED LIST changes: +CALCIUM500 MG PO; +PIOGLITAZONE HC15 MG PO
--- OUTSIDE RECORDS SUMMARY | 2024-09-20 09:58 | XMS ---
PreManage Notification: CARIN GAITAN Security [employer] Events No recent Security Events currently on file CRITERIA MET - [facility] - 2 Visits in 30 Days [facility] [place] Current FAMILY PHONE: Unknown Elsi has no Care Guidelines for this patient. Bailey VISIT COUNT (12 MO.) [address] [place] [address] TOTAL 6 NOTE: Visits indicate total known visits. ED/UCC VISIT TRACKING (12 MO.) 09/20/2024 09:52 [facility] [place] TYPE: Emergency COMPLAINT: - DIZZINESS 09/15/2024 15:40 [facility] [place] TYPE: Emergency COMPLAINT: - CHEST PAIN 06/04/2024 16:20 [facility] [place] TYPE: Emergency COMPLAINT: - CHEST PAIN DIAGNOSES: - Allergy status to sulfonamides - Heart failure, unspecified - Hypertensive heart disease with heart failure - FDC (current) use of anticoagulants - FDC (current) use of aspirin - vermin exterminator (current) use of oral hypoglycemic drugs - Other chest pain - Other termite helper (current) drug therapy - Personal history of pulmonary embolism - Pneumonia, unspecified organism - Presence of coronary angioplasty implant and graft - Type 2 diabetes mellitus without complications - Unspecified atrial fibrillation 01/07/2024 07:25 [facility] [place] TYPE: Emergency COMPLAINT: - DIZZINESS DIAGNOSES: - Allergy status to sulfonamides - Dizziness and giddiness - Heart failure, unspecified - Hypertensive heart disease with heart failure - FDC (current) use of antithrombotics/antiplatelets - vermin exterminator (current) use of aspirin - vermin exterminator (current) use of oral hypoglycemic drugs - Other alf (current) drug therapy - Other peripheral vertigo, unspecified ear - Type 2 diabetes mellitus without complications 12/19/2023 09:49 [facility] [place] TYPE: Emergency COMPLAINT: - CHEST PAIN DIAGNOSES: - Allergy status to sulfonamides - Chest pain, unspecified - Heart failure, unspecified - Hypertensive heart disease with heart failure - FDC (current) use of aspirin - Other alf (current) drug therapy - Palpitations - Type 2 diabetes mellitus without complications 12/16/2023 08:51 [facility] [place] TYPE: Emergency COMPLAINT: - SYNCOPE DIAGNOSES: - Allergy status to sulfonamides - Heart failure, unspecified - Hypertensive heart disease with heart failure - Left bundle-branch block, unspecified - vermin exterminator (current) use of aspirin - FDC (current) use of oral hypoglycemic drugs - Other termite helper (current) drug therapy - Syncope and collapse - Type 2 diabetes mellitus without complications - Urinary tract infection, site not specified INPATIENT VISIT TRACKING (12 MO.) 09/15/2024 17:[address] [facility] [place] TYPE: Critical Care COMPLAINT: - GI BLEED DIAGNOSES: - Acquired absence of other specified parts of digestive tract - Acquired absence of other specified parts of digestive tract - Allergy status to sulfonamides - Allergy status to sulfonamides - Anemia, unspecified - Anemia, unspecified - Atrioventricular block, first degree - Atrioventricular block, first degree - Urbina's esophagus without dysplasia - Urbina's esophagus without dysplasia - Benign prostatic hyperplasia without lower urinary tract symptoms - Benign prostatic hyperplasia without lower urinary tract symptoms - Cataract extraction status, left eye - Cataract extraction status, left eye - Cataract extraction status, right eye - Cataract extraction status, right eye - Diaphragmatic hernia without obstruction or gangrene - Diaphragmatic hernia without obstruction or gangrene - Gastritis, unspecified, with bleeding - Gastritis, unspecified, with bleeding - Heart failure, unspecified - Heart failure, unspecified - Hyperlipidemia, unspecified - Hyperlipidemia, unspecified - Hypertensive heart disease with heart failure - Hypertensive heart disease with heart failure - Hypomagnesemia - Hypomagnesemia - vermin exterminator (current) use of aspirin - FDC (current) use of aspirin - FDC (current) use of oral hypoglycemic drugs - FDC (current) use of oral hypoglycemic drugs - Other chest pain - Other alf (current) drug therapy - Other alf (current) drug therapy - Other pericardial effusion (noninflammatory) - Other pericardial effusion (noninflammatory) - Personal history of pulmonary embolism - Personal history of pulmonary embolism - Polyp of colon - Polyp of colon - Presence of coronary angioplasty implant and graft - Presence of coronary angioplasty implant and graft - Thrombocytopenia, unspecified - Thrombocytopenia, unspecified - Type 2 diabetes mellitus without complications - Type 2 diabetes mellitus without complications - Unspecified atrial fibrillation - Unspecified atrial fibrillation [email or web address]
[2024-09-20 10:45] LABS: BASOPHILS 0.5 % (0-2); EOSINOPHILS 1.4 % (0-6); LYMPHOCYTES 11.3 % (24-44); MCH 30.8 (27-36); MCHC 34.4 g/dl (30-36); MCV 89.5 fl (81-99); NEUTROPHILS 76.8 % (39-80); PLATELET COUNT 132 K/uL (140-440); RBC 3.57 M/ul (4.3-5.7); RDW 15.2 (10.5-15.0)
[2024-09-20] MEDS ORDERED: SODIUM CHLORIDE 0.9% 500 ML IV PRN (10:45)
[2024-09-20 11:02] LABS: ALBUMIN 3.3 g/dL (3.4-5.0); ALBUMIN/GLOBULIN RATIO 1.18 (1.1-2.4); ANION GAP 11.6 (7-21); BILIRUBIN, TOTAL 1.2 mg/dL (0.2-1.0); BUN/CREATININE RATIO 10.52 (6.0-28.6); CALCIUM 8.2 mg/dL (8.5-10.1); CREATININE, SERUM 0.95 mg/dL (0.70-1.30); POTASSIUM 3.6 mmol/L (3.5-5.1); PROTEIN, TOTAL 6.1 g/dL (6.4-8.2)
[2024-09-20 11:20] LABS: INR 1.13 (0.80-1.30); PROTIME 14.1 Sec (11.2-14.2)
[2024-09-20 11:22] LABS: PARTIAL THROMBOPLASTIN TIME 26.4 Sec (22.9-41.3)
[2024-09-20 11:33] LABS: ABO A; ANTIBODY SCREEN NEGATIVE; RH NEGATIVE
[2024-09-20 12:12] LABS: BILIRUBIN, URINE NEGATIVE (negative); BLOOD/HGB, URINE NEGATIVE (Negative); KETONE, URINE NEGATIVE (Negative); LEUK ESTERASE, URINE TRACE (negative); NITRITE, URINE POSITIVE (negative)
[2024-09-20 12:28] LABS: BACTERIA, URINE 2+ /hpf (negative); CASTS, URINE HYALINE 1+ \\lpf; COLLECTION TYPE, URINE CLEAN CATCH; CRYSTALS, URINE NONE SEEN (0-1+); EPITHELIAL CELLS, URINE OCCASIONAL /lpf (0-1+)
[2024-09-20 12:29] LABS: REFLEX CULTURE, URINE Yes (No)
[2024-09-20] MEDS ORDERED: CEPHALEXIN500 M1 PO (13:29)
[2024-09-20] MEDS ORDERED: CEPHALEXIN MONOHYDRATE 500 MG CAP PO ONE (13:30)
[2024-09-20] MEDS ORDERED: ACETAMINOPHEN 325 MG TAB PO PRN (14:00)
[2024-09-20] MEDS ORDERED: IBLOOD GLUCOSE TEST STRIP 1 EA TEST XX PRN (14:00)
[2024-09-20] MEDS ORDERED: GLUCAGON,HUMAN RECOMBINANT 1 MG/ML VIAL SUB-Q PRN (14:00)
[2024-09-20] MEDS ORDERED: ondansetron HCL 4 MG/2 ML VIAL IV PRN (14:00)
[2024-09-20] MEDS ORDERED: DEXTROSE 5% 1,000 ML IV PRN (14:00)
[2024-09-20] MEDS ORDERED: DEXTROSE 50% 50 ML SYR IV PRN ×2 (14:00)
[2024-09-20 14:18] VITALS: BP 126/68
--- OUTSIDE RECORDS SUMMARY | 2024-09-20 14:43 | XMS ---
PreManage Notification: CARIN GAITAN [employer] Events No recent Security Events currently on file CRITERIA MET - [facility] - 2 Visits in 30 Days [facility] Current FAMILY PHONE: Unknown Elsi has no Care Guidelines for this patient. [place] VISIT COUNT (12 MO.) [address] [place] [address] TOTAL 6 NOTE: Visits indicate total known visits. ED/UCC VISIT TRACKING (12 MO.) 09/20/2024 09:52 [facility] [place] TYPE: Emergency COMPLAINT: - WEAKNESS/UTI 09/15/2024 15:40 [facility] [place] TYPE: Emergency COMPLAINT: - CHEST PAIN 06/04/2024 16:20 [facility] [place] TYPE: Emergency COMPLAINT: - CHEST PAIN DIAGNOSES: - Allergy status to sulfonamides - Heart failure, unspecified - Hypertensive heart disease with heart failure - termite treater helper (current) use of anticoagulants - jail (current) use of aspirin - jail (current) use of oral hypoglycemic drugs - Other chest pain - Other care home (current) drug therapy - Personal history of pulmonary embolism - Pneumonia, unspecified organism - Presence of coronary angioplasty implant and graft - Type 2 diabetes mellitus without complications - Unspecified atrial fibrillation 01/07/2024 07:25 [facility] [place] TYPE: Emergency COMPLAINT: - DIZZINESS DIAGNOSES: - Allergy status to sulfonamides - Dizziness and giddiness - Heart failure, unspecified - Hypertensive heart disease with heart failure - termite treater helper (current) use of antithrombotics/antiplatelets - jail (current) use of aspirin - jail (current) use of oral hypoglycemic drugs - Other care home (current) drug therapy - Other peripheral vertigo, unspecified ear - Type 2 diabetes mellitus without complications 12/19/2023 09:[address] [facility] [place] TYPE: Emergency COMPLAINT: - CHEST PAIN DIAGNOSES: - Allergy status to sulfonamides - Chest pain, unspecified - Heart failure, unspecified - Hypertensive heart disease with heart failure - jail (current) use of aspirin - Other care home (current) drug therapy - Palpitations - Type 2 diabetes mellitus without complications 12/16/2023 08:51 [facility] [place] TYPE: Emergency COMPLAINT: - SYNCOPE DIAGNOSES: - Allergy status to sulfonamides - Heart failure, unspecified - Hypertensive heart disease with heart failure - Left bundle-branch block, unspecified - jail (current) use of aspirin - jail (current) use of oral hypoglycemic drugs - Other care home (current) drug therapy - Syncope and collapse - Type 2 diabetes mellitus without complications - Urinary tract infection, site not specified INPATIENT VISIT TRACKING (12 MO.) 09/20/2024 14:12 [facility] [place] TYPE: Medical Surgical COMPLAINT: - WEAKNESS/UTI 09/15/2024 17:37 [facility] [place] TYPE: Critical Care COMPLAINT: - GI [...] heart failure - Hypomagnesemia - Hypomagnesemia - jail (current) use of aspirin - jail (current) use of aspirin - jail (current) use of oral hypoglycemic drugs - jail (current) use of oral hypoglycemic drugs - Other chest pain - Other termite treater helper (current) drug therapy - Other care home (current) drug therapy - Other pericardial effusion [...] Unspecified atrial fibrillation - Unspecified atrial fibrillation [email or web address]
[2024-09-20] MEDS ORDERED: INSULIN LISPRO 100 UNIT/ML ML SUB-Q SCH (17:00)
[2024-09-20] MEDS ORDERED: IBLOOD GLUCOSE TEST STRIP 1 EA TEST VI SCH (17:00)
[2024-09-20] MEDS ORDERED: MELATONIN 3 MG TAB PO PRN (21:00)
[2024-09-21] MEDS ORDERED: PHARMACY RENAL DOSE ADJUSTMENT 1 DOSE MISC PO SCH (12:00)
== END 2024-09-20 14:18 | disposition home or self-care (01) ==
LOC: ED 09:51 → MS 14:12 → ED 14:18
PROVIDERS: Emergency Medicine
DX: N39.0 Urinary tract infection, site not specified (principal); E11.9 Type 2 diabetes mellitus without complications; I48.91 Unspecified atrial fibrillation; I10 Essential (primary) hypertension; I50.9 Heart failure, unspecified; Z88.2 Allergy status to sulfonamides; Z79.899 Other long term (current) drug therapy
CPT/HCPCS: 36415; 80053; 81001; 85025; 85610; 85730; 86850; 86900; 86901; 87077; 87088; 87186; 99284; A9270; J7040

== ENCOUNTER 2025-04-20 22:51 | Emergency (ER) | payer OTHER, MEDICARE ==
[~2025-04-20] VITALS: Ht 177.8 cm; Wt 103.3 kg
[~2025-04-20 22:51] MED LIST changes: +CEPHALEXIN500 M1 PO
[2025-04-21] MEDS ORDERED: LIDOCAINE 2% VISCOUS 6 ML SYR ONE ×2 (00:51→01:23)
[2025-04-21 01:51] LABS: BLOOD/HGB, URINE LARGE (Negative); KETONE, URINE SMALL (Negative); LEUK ESTERASE, URINE MODERATE (negative); NITRITE, URINE NEGATIVE (negative)
[2025-04-21] MEDS ORDERED: HYDROmorphone HCL 1 MG/ML SYR IV PRN (02:00)
[2025-04-21 02:01] LABS: BACTERIA, URINE 4+ /hpf (negative); CASTS, URINE NONE SEEN \\lpf; CRYSTALS, URINE NONE SEEN (0-1+); EPITHELIAL CELLS, URINE SQUAMOUS 1+ /lpf (0-1+); REFLEX CULTURE, URINE Yes (No)
[2025-04-21 04:21] VITALS: BP 137/76
== END 2025-04-21 04:00 | disposition short-term general hospital (02) ==
LOC: ED 22:51
PROVIDERS: Emergency Medicine
DX: R33.9 Retention of urine, unspecified (principal); I11.0 Hypertensive heart disease with heart failure; I50.9 Heart failure, unspecified; E11.9 Type 2 diabetes mellitus without complications; Z79.899 Other long term (current) drug therapy; Z88.2 Allergy status to sulfonamides
CPT/HCPCS: 51798; 81001; 87077; 87088; 96374; 96375; 99284-25; J1171; J2405